=== PATIENT | female | born 1945 | race Caucasian/White ===

== ENCOUNTER → 2017-08-02 | Outpatient (CLI) | payer OTHER | LOC: BMCIMAGING 07:53 | PROVIDERS: ATTEND Family Medicine | DX: Z12.31 Encounter for screening mammogram for malignant neoplasm of breast (principal) | CPT/HCPCS: G0202 ==

== ENCOUNTER 2018-10-16 09:35 | Emergency (ER) | payer OTHER ==
[2018-10-16] MEDS ORDERED: ACETAMINOPHEN 500 MG TAB PO ONE (09:44)
[2018-10-16] MEDS ORDERED: DIAZEPAM 5 MG/ML 1 ML SYR IVP ONE (09:44)
[2018-10-16] MEDS ORDERED: LIDOCAINE 4%/MENTHOL 1% PATCH TD ONE (09:44)
[2018-10-16] MEDS ORDERED: DEXAMETHASONE 4 MG/ML VIAL IVP ONE (09:44)
--- NOTE | 2018-10-16 09:44 | EDPHY ---
H & P Source: Patient, EMS Exam Limitations: No limitations Time Seen by Provider: 10/16/18 09:40 HPI/ROS: HPI: This is a 73-year-old female who presents with Chief Complaint: Left hip pain Location: Left hip Quality: Pain Duration: Yesterday evening Signs and Symptoms: No bleeding, no radiation, no numbness, no weakness, no tingling, no incontinence, + decreased range of motion, no swelling, + pain, no fever Timing: Acute onset, worse with certain movements Severity: 05/26 Context: Patient arrives via EMS with complaints of sudden onset in the middle the night last night of left lateral hip pain that was nonradiating in nature. She reports that she fell asleep on the couch and woke up and when she tried to the flexor left hip to climb the stairs she felt immediate, constant, moderate to severe nonradiating pain in her left hip. Patient reports that the pain was so severe that she had to sit down call for . She reports that she did not fall or sustain any injury. Patient has a remote history of lower back pain but no diagnosis lumbar degenerative disc disease. She was seen by physical therapy and told that she had a "tight IT band." Denies any change in bowel or bladder habits. Patient normally takes Advil for pain and has had no relief. Ambulation is limited due to increased pain. Modifying Factors: EMS give patient IV morphine 5 mg with relief of pain from to 02/23 Comment: ROS: A comprehensive 10 system review of systems is otherwise negative aside from elements mentioned in the history of present illness. MEDICAL/SURGICAL/SOCIAL HISTORY: Medical history: Hypertension. Surgical history: Denies Social history: , retired, nonsmoker, daily alcohol user CONSTITUTIONAL: Polite and cooperative elderly white female, awake and alert, no obvious distress HEENT: Atraumatic and normocephalic. NECK: supple, no midline tenderness Cardiovascular: Normal S1/S2, regular rate, regular rhythm, without murmur rub or gallop. PULMONARY/CHEST: Symmetrical and nontender. no crepitus. Clear to auscultation bilaterally. Good air movement. No accessory muscle usage. ABDOMEN: Soft, nondistended, nontender, no ecchymosis. PELVIC: no pain with rocking; bilateral hips flexion 125 degrees, extension 30 degrees, with no pain internal rotation and no pain external rotation. BACK: No midline tenderness, no paraspinous spasm, deep tendon reflexes 2/2, moderate pain with left straight leg raise, No foot drop. Achilles reflexes are equal bilaterally. EXTREMITIES: 2/2 pedal pulses, strength 5/5, left HIP: Flexion to 80, extension to 75, hyper extension to 15, abduction to 15. Moderate Pain with internal rotation and external rotation. Moderate tenderness over greater trochanter. DIP/PIP/MCP flexion/extension intact with good light touch sensation. no deformities, no clubbing, no cyanosis or edema. NEUROLOGICAL: no focal neuro deficits. GCS 15. Light touch sensation intact. SKIN: Warm and dry, no erythema. no rash. Good capillary refill. (Cande Bronson ) Constitutional: Initial Vital Signs Heart Rate 104 H 10/16/18 09:40 Respiratory Rate 18 10/16/18 09:40 Blood Pressure 150/95 H 10/16/18 09:40 O2 Sat (%) 93 10/16/18 09:40 O2 Delivery Mode [Post Room Air Procedure 1st] O2 Delivery Mode [Procedural Non-Rebreather Mask 1st] O2 Delivery Mode [.Immediate Non-Rebreather Mask Pre-Procedure] O2 Delivery Mode Room Air O2 (L/minute) [Procedural 1st] 15 O2 (L/minute) [.Immediate Pre- 15 Procedure] O2 (L/minute) 2 Allergies/Adverse Reactions: No Known Allergies Allergy (Unverified 10/16/18 09:39) Home Medications: Medication Instructions Recorded HCTZ (*) 10/16/18 Medical Decision Making - Diagnostics Imaging Results: Imaging Impressions Hip X-Ray 10/16/18 09:44 Impression: Posterior left hip dislocation. Lumbar Spine X-Ray 10/16/18 09:44 Impression: Limited study with age indeterminate mild anterior wedge compression deformity of the first nonrib-bearing lumbar vertebral body. Correlation with point tenderness and comparison with prior cross-sectional imaging is recommended if available Hip X-Ray 10/16/18 11:02 Impression: Successful reduction of the left hip dislocation. Procedures: 10:55 Procedure: Conscious sedation. Indication: Hip dislocation reduction I was asked by SOLOMON Mc, to perform procedural sedation. The patient is an appropriate candidate to tolerate procedural sedation. The patient's vitals signs and mental status are appropriate. The risks, benefits and alternatives of the sedation were discussed with the patient. The patient is ASA classification 2. The patient's Mallampati airway score was 2 and the patient did meet the 3-3-2 airway measurements. A time out was completed. The patient was sedated with 60mg IV Propofol. The patient was monitored with continuous pulse oximetry, equipment monitor phototypesetting and end tidal CO2. There were no complications and no significant hypoxemia. I performed the sedation, reduction performed by SOLOMON Mc. The total time I spent at the bedside during the procedural sedation was 20 minutes. The patient was examined after the procedural sedation and has returned to their pre-sedation baseline with normal vital signs and a normal examination. (Roman Graham) Procedure: Dislocation reduction. The dislocation of the left hip was reduced using Allis technique without complications. Post reduction the patient's neurovascular exam is normal. Post reduction x-ray demonstrates reduction of the joint to the anatomic position. The procedure was performed by myself. (Cande Bronson) ED Course/Re-evaluation: Vital signs reviewed and show mild tachycardia. No signs of cauda equina syndrome/saddle anesthesia or need for emergent MRI Left hip x-ray and lumbar sacral x-rays ordered IV access and medications given Patient given IV Valium 5 mg, IV Decadron 8 mg, p.o. Tylenol 1000 mg, Lidoderm patch 1042: Left hip x-ray shows dislocation. Moved to Trauma [address] Graham perform conscious sedation and hip reduced with 1st attempt. Post reduction x-ray shows nornal alignment 1300: Patient able to transfer out of bed and stand using walker without any hip pain or decreased range of motion. Patient complaining of dizziness status post conscious sedation. Offer patient admission and she is adamant that she wants to be discharged home. Will continue to monitor. 1437: Patient ambulating in halls using walker without difficulty or pain. manager mortgage consult for walker at discharge. No signs of neurovascular compromise/tenting of skin/compartment syndrome/ extremities and joints examined above and below area of concern and are neurovascularly intact. This patient was seen under the supervision of my secondary supervising physician. I evaluated care for this patient independently. Discussed this patient with Dr. Graham who did not see the patient. (Cande Bronson) Differential Diagnosis: Back pain including but not limited to muscular pain, herniated disc, spine fracture, intra-abdominal causes and urinary tract infection. (Cande Bronson) - Data Points Medications Given: Discontinued Medications Acetaminophen (Tylenol) 1,000 mg PO EDNOW ONE Stop: 10/16/18 09:45 Last Admin: 10/16/18 09:49 Dose: 1,000 mg Dexamethasone (Decadron Injection) 8 mg IVP EDNOW ONE Stop: 10/16/18 09:45 Last Admin: 10/16/18 09:51 Dose: 8 mg Diazepam (Valium) 5 mg IVP EDNOW ONE Stop: 10/16/18 09:45 Last Admin: 10/16/18 09:50 Dose: 5 mg Miscellaneous Medication (Icy Hot Lidocaine/Menthol 4%/1% Patch) 1 patch TD EDNOW ONE Stop: 10/16/18 09:45 Last Admin: 10/16/18 09:51 Dose: 1 patch Propofol (Diprivan) 60 mg IVP EDNOW ONE Stop: 10/16/18 10:45 Last Admin: 10/16/18 10:58 Dose: 60 mg Departure - Departure Disposition: Home, Routine, Self-Care Clinical Impression: Dislocation of hip, left, closed Qualifiers: Encounter type: initial encounter Qualified Code(s): S73.005A - Unspecified dislocation of left hip, initial encounter Condition: Good Instructions: Hip Dislocation (ED) Additional Instructions: Avoid climbing stairs or kicking activities. Use walker to aid ambulation until seen by Orthopedics. Take Tylenol 650 mg every 4 hours and/or Ibuprofen 600 mg every 8 hours with food as needed for pain. Apply ice for 30 minutes at a time; 2-3 times per day for the next 1-2 days. Follow up with Orthopedics in 5-7 days at which time they will evaluate and recommend with you if conservative management versus further therapy is indicated. Follow-Up: Please follow-up as noted above. Follow-up sooner if your condition worsens or if you develop any new problems. Call as soon as possible for an appointment. Be clear when you call for an appointment that this is an Emergency Department follow-up. Contact the Emergency Department if you have trouble arranging follow-up care. Our referrals are not based on your insurance network. When time allows, contact your insurance carrier to verify the referral physician is in your plan. If not, get a referral for an in-network operations lead. Referrals: Harrison Juarez MD [Medical Doctor] - As per Instructions
[2018-10-16] MEDS ORDERED: PROPOFOL 200 MG/20 ML VIAL IVP ONE (10:44)
[2018-10-16] MEDS ORDERED: fentaNYL 100 MCG/2 ML INJ ONE (10:49)
[2018-10-16 15:06] VITALS: BP 130/73
[2018-10-16] MEDS ORDERED: PATCH REMOVAL 1 EA PATCH TD SCH (21:00)
--- NOTE | 2018-10-17 17:28 | ASMTCAGE ---
CAGE Additional Comments Reviewed chart. SBIRT negative. MD notes indicate pt drinks daily. CM unable to screen, pt discharged prior to being seen by CM. Date Signed: 10/17/2018 05:27 PM Electronically Signed By:Vanita Mcintyre RN
== END 2018-10-16 15:06 | disposition home or self-care (01) ==
LOC: EDUNIT#
PROC: 0SSBXZZ Reposition Left Hip Joint, External Approach (ICD-10-PCS; principal; 2018-10-16)
DX: S73.005A Unspecified dislocation of left hip, initial encounter (principal); Y92.009 Unspecified place in unspecified non-institutional (private) residence as the place of occurrence of the external cause; Y93.9 Activity, unspecified
CPT/HCPCS: 27250; 72100; 73501; 73502; 96374; 96375; 99152; 99285; J1100; J2704; J3360; J3010

== ENCOUNTER 2018-11-29 07:21 | Inpatient (IN) | payer OTHER | END 2018-12-04 15:45 | LOC: F3E 11:21 ==

== ENCOUNTER 2018-12-14 16:17 | Inpatient (IN) | payer OTHER ==
--- NOTE | 2018-12-14 18:01 | EDPHY ---
H & P Stated Complaint: ARI LE tingling Time Seen by Provider: 12/14/18 17:51 HPI/ROS: HPI: This is a 73-year-old female who presents with Chief Complaint: Bilateral LE tingling Location: Quality: Duration: Signs and Symptoms: No bleeding, no radiation, no numbness, no weakness, no tingling, no incontinence, no decreased range of motion, no swelling, no pain, no fever Timing: Severity: Context: Denies LOC/head injury/neck pain/dizziness/nausea/vomiting/amnesia. Modifying Factors: Comment: ROS: A comprehensive 10 system review of systems is otherwise negative aside from elements mentioned in the history of present illness. MEDICAL/SURGICAL/SOCIAL HISTORY: Medical history: HTN, left hip dislocation, hyponatremia Surgical history: Knee replacement Social history: CONSTITUTIONAL: awake and alert, no obvious distress HEENT: Atraumatic and normocephalic. NECK: supple, no midline tenderness, flexion 45 degrees, extension 45 degrees, right and left lateral flexion 45 degrees. No meningismus. Cardiovascular: Normal S1/S2, tachycardia, regular rhythm, without murmur rub or gallop. PULMONARY/CHEST: Symmetrical and nontender. no crepitus. Clear to auscultation bilaterally. Good air movement. No accessory muscle usage. ABDOMEN: Soft, nondistended, nontender, no ecchymosis. PELVIC: no pain with rocking; bilateral hips flexion 125 degrees, extension 30 degrees, with no pain internal rotation and no pain external rotation. BACK: No midline tenderness, no paraspinous spasm, deep tendon reflexes 2/2, no pain with straight leg raise, No foot drop. Achilles reflexes are equal bilaterally. Able to walk on heels and toes without difficulty. EXTREMITIES: 2/2 pulses, strength 5/5, DIP/PIP/MCP flexion/extension intact with good light touch sensation. no deformities, no clubbing, no cyanosis or edema. NEUROLOGICAL: no focal neuro deficits. GCS 15. Light touch sensation intact. SKIN: Warm and dry, no erythema. no rash. Good capillary refill. Source: Patient Exam Limitations: No limitations - Personal History Current Tetanus/Diphtheria Vaccine: Yes Current Tetanus Diphtheria and Acellular Pertussis (TDAP): Yes - Medical/Surgical History Hx Asthma: No Hx Chronic Respiratory Disease: No Hx Diabetes: No Hx Cardiac Disease: Yes Hx Renal Disease: No Hx Cirrhosis: No Hx Alcoholism: No Hx HIV/AIDS: No Hx Splenectomy or Spleen Trauma: No Other PMH: HTN, knee replacement, left hip dislocation, hyponatremia - Social History Smoking Status: Never smoked Constitutional: Initial Vital Signs Temperature (C) 36.9 C 12/14/18 16:18 Heart Rate 112 H 12/14/18 16:18 Respiratory Rate 16 12/14/18 16:18 Blood Pressure 151/131 H 12/14/18 16:18 O2 Sat (%) 96 12/14/18 16:18 O2 Delivery Mode Room Air Allergies/Adverse Reactions: No Known Allergies Allergy (Verified 12/14/18 16:18) Home Medications: Medication Instructions Recorded Multivitamins [Multivitamin (*)] 1 each PO DAILY 11/29/18 Acetaminophen [Tylenol 325mg (*)] 650 mg PO Q4HRS PRN tab 12/04/18 Cyclobenzaprine [Flexeril 10 MG 10 mg PO TID PRN tab 12/04/18 (*)] Hydrocodone/APAP 5/325 [[place] 1 - 2 tab PO Q4HRS PRN tab 12/04/18 5/325 (*)] Lisinopril [Zestril 10 mg (*)] 20 mg PO DAILY #30 tab 12/04/18 Polyethylene Glycol 3350 [Miralax 17 gm PO DAILY PRN pkt 12/04/18 17 gm (*)] Sennosides/Docusate Sodium 1 - 2 tab PO BID tab 12/04/18 [Senokot-S] Sodium Chloride [Salt Tablet] 1,000 mg PO TID tab 12/04/18 Departure - Departure Referrals: NONE *PRIMARY CARE P,. [Primary Care Provider] - As per Instructions
--- NOTE | 2018-12-14 18:07 | EDPHY ---
H & P Stated Complaint: ARI LE tingling Time Seen by Provider: 12/14/18 17:51 HPI/ROS: HPI: This is a 73-year-old female who presents with Chief Complaint: Bilateral leg and foot numbness Location: Bilateral leg and foot Quality: Numbness Duration: 2 hr prior to arrival Signs and Symptoms: No bleeding, no radiation, no numbness, no weakness, no tingling, no incontinence, no decreased range of motion, no swelling, no pain, no fever Timing: Acute Severity: [id number] Context: Patient reports that she was sitting down playing on her iPad when she started to developed bilateral leg and foot numbness. She reports that it feels like "if fell asleep." She denies any radiation, weakness, decreased range of motion. Patient reports that she fell in September and was seen in this hospital and had her left hip reduced after dislocation and also had a lumbar spine x-ray that showed age-indeterminate mild anterior wedge compression deformity of the 1st non bearing lumbar vertebral body. She reports she went home with a walker without any difficulties. She started to feel generalized weakness in November and was admitted to this hospital on with hyponatremia/SIADH as well as low back pain that improved with oxycodone and Flexeril. She was discharged to [facility] facility which she "did not care for." Two weeks ago patient reports that she fell while getting into her bed that is quite elevated. She reports that she fell directly on her lumbar spine and coccyx area. She was able to get up off of the floor on her own at that time. She is currently ambulatory without any deficits. Denies any change in bowel or bladder habits. Modifying Factors: None Comment: ROS: A comprehensive 10 system review of systems is otherwise negative aside from elements mentioned in the history of present illness. MEDICAL/SURGICAL/SOCIAL HISTORY: Medical history: HTN, SIADH, left hip dislocation, hyponatremia Surgical history: Left knee replacement Social history: Retired. Never smoked. . CONSTITUTIONAL: Talkative, nontoxic-appearing elderly white female, at bedside, awake and alert, no obvious distress HEENT: Atraumatic and normocephalic. NECK: supple, no midline tenderness, flexion 45 degrees, extension 45 degrees, right and left lateral flexion 45 degrees. No meningismus. Cardiovascular: Normal S1/S2, regular rate, regular rhythm, without murmur rub or gallop. PULMONARY/CHEST: Symmetrical and nontender. no crepitus. Clear to auscultation bilaterally. Good air movement. No accessory muscle usage. ABDOMEN: Soft, nondistended, nontender, no ecchymosis. PELVIC: no pain with rocking; bilateral hips flexion 125 degrees, extension 30 degrees, with no pain internal rotation and no pain external rotation. BACK: Multilevel lumbar midline tenderness, no paraspinous spasm, deep tendon reflexes 2/2, no pain with straight leg raise, No foot drop. Achilles reflexes are equal bilaterally. EXTREMITIES: 2/2 pulses, strength 5/5, DIP/PIP/MCP flexion/extension intact with good light touch sensation. no deformities, no clubbing, no cyanosis or edema. NEUROLOGICAL: no focal neuro deficits. GCS 15. Light touch sensation intact. SKIN: Warm and dry, no erythema. no rash. Good capillary refill. Source: Patient, Family, Old records Exam Limitations: No limitations - Personal History Current Tetanus/Diphtheria Vaccine: Yes Current Tetanus Diphtheria and Acellular Pertussis (TDAP): Yes - Medical/Surgical History Hx Asthma: No Hx Chronic Respiratory Disease: No Hx Diabetes: No Hx Cardiac Disease: Yes Hx Renal Disease: No Hx Cirrhosis: No Hx Alcoholism: No Hx HIV/AIDS: No Hx Splenectomy or Spleen Trauma: No Other PMH: HTN, knee replacement, left hip dislocation, hyponatremia - Social History Smoking Status: Never smoked Constitutional: Initial Vital Signs Temperature (C) 36.9 C 12/14/18 16:18 Heart Rate 112 H 12/14/18 16:18 Respiratory Rate 16 12/14/18 16:18 Blood Pressure 151/131 H 12/14/18 16:18 O2 Sat (%) 96 12/14/18 16:18 O2 Delivery Mode Room Air Allergies/Adverse Reactions: No Known Allergies Allergy (Verified 12/14/18 16:18) Home Medications: Medication Instructions Recorded Multivitamins [Multivitamin (*)] 1 each PO DAILY 11/29/18 Acetaminophen [Tylenol 325mg (*)] 650 mg PO Q4HRS PRN tab 12/04/18 Cyclobenzaprine [Flexeril 10 MG 10 mg PO TID PRN tab 12/04/18 (*)] Hydrocodone/APAP 5/325 [[place] 1 - 2 tab PO Q4HRS PRN tab 12/04/18 5/325 (*)] Lisinopril [Zestril 10 mg (*)] 20 mg PO DAILY #30 tab 12/04/18 Polyethylene Glycol 3350 [Miralax 17 gm PO DAILY PRN pkt 12/04/18 17 gm (*)] Sennosides/Docusate Sodium 1 - 2 tab PO BID tab 12/04/18 [Senokot-S] Sodium Chloride [Salt Tablet] 1,000 mg PO TID tab 12/04/18 Medical Decision Making - Diagnostics Imaging Results: Imaging Impressions Lumbar Spine MRI 12/14/18 18:01 Impression: 1. There are old mild T12 and L6 compression fractures. 2. There is a [id number] L1 and moderate L2 acute/subacute compression deformities. There is no dorsal retropulsion or epidural hematoma. 3. There is trace degenerative anterolisthesis at L5-L6 with broad-based circumferential disk bulging and moderate bilateral facet hypertrophy, mild central canal stenosis, mild right neural foraminal stenosis, and moderate left neural foraminal stenosis. Please see the above discussion for other ancillary findings at each level. Findings were discussed with Cadne Bronson PA-C at 21:03, on 12/14/2018. ED Course/Re-evaluation: Vital signs reviewed and show mild tachycardia, mild elevated blood pressure IV access, laboratory studies, urinalysis, MRI lumbar spine ordered 1821: Notified by RN that patient is requesting Ativan prior to MRI. IV Ativan 1 mg ordered. 1899: Notified by RN that patient is requesting pain medications. P.o. Percocet x1 given. 1921: Labs reviewed. No signs of leukocytosis/anemia/platelet dysfunction/ERI/ electrolyte imbalance/pancreatitis. Macrocytosis without anemia noted. Mildly elevated LFTs that are improved from several days ago. Sodium 132. 2114: Called by Radiology, Dr. Rogers, who reports that MRI lumbar spine shows progression of L1 fracture seen on x-ray September 2018 new compression fracture at L2 with bone marrow edema, multilevel degenerative disc disease with L5-S1 mild disc bulge and mild central canal stenosis. 2214: ED decision to consult hospitalist for admission. Spoke with hospitalist , Dr. Alvarado, kindly agrees to admit patient and provide further care. Spoke with neurosurgery, Dr. Ernst, kindly agrees to consult on patient. Recommends placement in back brace. No signs of neurovascular compromise/tenting of skin/compartment syndrome/ extremities and joints examined above and below area of concern and are neurovascularly intact/cauda equina syndrome. This patient was seen under the supervision of my secondary supervising physician. I evaluated care for this patient independently. Discussed this patient with Dr. Limon who did not see the patient. Differential Diagnosis: Back pain including but not limited to muscular pain, herniated disc, spine fracture, intra-abdominal causes and urinary tract infection. - Data Points Laboratory Results: Laboratory Results 12/14/18 18:08 12/14/18 18:08 12/14/18 12/14/18 18:08 18:08 WBC 5.32 10^3/uL 10^3/uL (3.80-9.50) RBC 4.07 10^6/uL L 10^6/uL (4.18-5.33) Hgb 13.8 g/dL g/dL (12.6-16.3) Hct 41.0 % % (38.0-47.0) MCV 100.7 fL H fL (81.5-99.8) MCH 33.9 pg pg (27.9-34.1) MCHC 33.7 g/dL g/dL (32.4-36.7) RDW 14.4 % % (11.5-15.2) Plt Count 527 10^3/uL H 10^3/uL (150-400) MPV 9.0 fL fL (8.7-11.7) Neut % (Auto) 72.3 % % (39.3-74.2) Lymph % (Auto) 16.5 % % (15.0-45.0) Barber % (Auto) 9.0 % % (4.5-13.0) Eos % (Auto) 0.8 % % (0.6-7.6) Baso % (Auto) 0.8 % % (0.3-1.7) Nucleat RBC Rel Count 0.0 % % (0.0-0.2) Absolute Neuts (auto) 3.85 10^3/uL 10^3/uL (1.70-6.50) Absolute Lymphs (auto) 0.88 10^3/uL L 10^3/uL (1.00-3.00) Absolute Monos (auto) 0.48 10^3/uL 10^3/uL (0.30-0.80) Absolute Eos (auto) 0.04 10^3/uL 10^3/uL (0.03-0.40) Absolute Basos (auto) 0.04 10^3/uL 10^3/uL (0.02-0.10) Absolute Nucleated RBC 0.00 10^3/uL 10^3/uL (0-0.01) Immature Gran % 0.6 % % (0.0-1.1) Immature Gran # 0.03 10^3/uL 10^3/uL (0.00-0.10) Sodium 132 mEq/L L mEq/L (135-145) Potassium 4.4 mEq/L mEq/L (3.5-5.2) Chloride 99 mEq/L mEq/L (97-110) Carbon Dioxide 22 mEq/l mEq/l (22-31) Anion Gap 11 mEq/L mEq/L (6-14) BUN 8 mg/dL mg/dL (7-23) Creatinine 0.6 mg/dL mg/dL (0.6-1.0) Estimated GFR > 60 Glucose 113 mg/dL H mg/dL (70-100) Calcium 10.1 mg/dL mg/dL (8.5-10.4) Total Bilirubin 1.0 mg/dL mg/dL (0.1-1.4) Conjugated Bilirubin 0.5 mg/dL mg/dL (0.0-0.5) Unconjugated Bilirubin 0.5 mg/dL mg/dL (0.0-1.1) AST 52 IU/L H IU/L (14-46) ALT 61 IU/L H IU/L (9-52) Alkaline Phosphatase 156 IU/L H IU/L (38-126) Total Protein 6.5 g/dL g/dL (6.3-8.2) Albumin 3.9 g/dL g/dL (3.5-5.0) Lipase 16 IU/L L IU/L (23-300) Medications Given: Discontinued Medications Lorazepam (Ativan Injection) 1 mg IVP EDNOW ONE Stop: 12/14/18 18:23 Last Admin: 12/14/18 18:25 Dose: 1 mg Oxycodone/Acetaminophen (Percocet 5/325) 1 tab PO EDNOW ONE Stop: 12/14/18 19:09 Last Admin: 12/14/18 19:13 Dose: 1 tab Departure - Dep[facility] Clinical Impression: Lumbar disc herniation with radiculopathy, Risk for falls, Intractable low back pain Compression fracture of L1 lumbar vertebra Qualifiers: Encounter type: initial encounter Fracture type: closed Qualified Code(s): S32.010A - Wedge compression fracture of first lumbar vertebra, initial encounter for closed fracture Compression fracture of L2 lumbar vertebra Qualifiers: Encounter type: initial encounter Fracture type: closed Qualified Code(s): S32.020A - Wedge compression fracture of second lumbar vertebra, initial encounter for closed fracture Condition: Fair
[2018-12-14 18:20] LABS: PLATELET COUNT 527 10^3/uL (150-400)
[2018-12-14] MEDS ORDERED: LORazepam 2 MG/ML INJ IVP ONE (18:22)
[2018-12-14] MEDS ORDERED: OXYCODONE/APAP 5/325 TAB PO ONE (19:08)
[2018-12-14] MEDS ORDERED: NS 1,000 ML IV ONE (21:57)
[2018-12-14] MEDS ORDERED: IBUPROFEN 200 MG TAB PO PRN (22:56)
[2018-12-14] MEDS ORDERED: oxyCODONE IR 5 MG TAB PO PRN (22:56)
[2018-12-14] MEDS ORDERED: ONDANSETRON 4 MG/2 ML VIAL IVP PRN (22:56)
[2018-12-14] MEDS ORDERED: ONDANSETRON DISINTEGRATING 4 MG TAB PO PRN (22:56)
[2018-12-14] MEDS ORDERED: SENNOSIDES/DOCUSATE SODIUM TAB PO PRN (22:59)
[2018-12-14] MEDS ORDERED: POLYETHYLENE GLYCOL 3350 17 GM PKT PO PRN (22:59)
--- NOTE | 2018-12-15 00:07 | PDGENHP ---
History and Physical - Chief Complaint Foot numbness - History of Present Illness 73 yo F w/ hx of HTN, SIADH, and chronic back pain presents with bilateral foot numbness. The patient was recently admitted and discharged to a SNF after treatment of weakness, hyponatremia, and back pain. She was treated conservatively and discharged to a SNF. She has been home for 1 week and tells me she has been doing well. Then, today while sitting in a chair she noted bilateral foot numbness. This lasted about 5 minutes. She felt a bit dizzy as well so she came to the ED for evaluation. The bilateral foot numbness recurred in the ED for a few minutes but has now resolved. Her last fall was about 2 weeks ago while trying to get into bed. She did fall onto her coccyx/lower back. She denies an increase in her back pain from her baseline. In fact, currently she is asymptomatic aside from her chronic back pain. In the ED an MRI demonstrated nnshhdfp-kw-atowli L1 and moderate L2 acute/subacute compression deformities as well as L5/6 disk bulging meriting neurosurgical evaluation. Patient is being admitted for this reason. Case discussed with Dr. Alvarado; records reviewed and summarized above. History Information - Allergies/Home Medication List Allergies/Adverse Reactions: No Known Allergies Allergy (Verified 12/14/18 16:18) Home Medications: Multivitamins [Multivitamin (*)] 1 each PO DAILY 11/29/18 [Last Taken Unknown] Cyclobenzaprine [Flexeril 10 MG (*)] 10 mg PO TID PRN 12/14/18 [Last Taken 12/14 12:00] Hydrochlorothiazide [HCTZ (*)] 25 mg PO DAILY 12/14/18 [Last Taken 12/13/18] Hydrocodone/APAP 5/325 [[place] 5/325 (*)] 1 tab PO Q4HRS PRN 12/14/18 [Last Taken 12/14/18 11:30] Lisinopril [Zestril 10 mg (*)] 10 mg PO DAILY 12/14/18 [Last Taken Unknown] Sennosides/Docusate Sodium [Senokot-S] 1 - 2 tab PO BID PRN 12/14/18 [Last Taken Unknown] I have personally reviewed and updated: family history, medical history - Past Medical History hypertension Additional medical history: SIADH - Surgical History Additional surgical history: knee tka L - Family History Additional family history: Parents - Social History Smoking Status: Never smoked Review of Systems Review of Systems: ROS: 10pt was reviewed & negative except for what was stated in HPI & below Physical Exam Physical Exam: Temp Pulse Resp BP Pulse Ox 36.8 C 104 H 16 171/107 H 95 12/14/18 23:28 12/14/18 23:28 12/14/18 23:28 12/14/18 23:28 12/14/18 23:28 Constitutional: no apparent distress, appears nourished Eyes: PERRL, EOMI Ears, Nose, Mouth, Throat: moist mucous membranes, no oral mucosal ulcers Cardiovascular: regular rate and rhythym, systolic murmur Respiratory: no respiratory distress, clear to auscultation Gastrointestinal: normoactive bowel sounds, soft, non-tender abdomen Skin: warm, other (Purpuric, scaling rash lower extremities) Musculoskeletal: full muscle strength, no joint effusions Neurologic: AAOx3, CN II-XII Intact, other (LE reflexes WNL) Psychiatric: interacting appropriately, not anxious Lab Data & Imaging Review 12/14/18 18:08 12/14/18 18:08 WBC 5.32 10^3/uL (3.80-9.50) 12/14/18 18:08 RBC 4.07 10^6/uL (4.18-5.33) L 12/14/18 18:08 Hgb 13.8 g/dL (12.6-16.3) 12/14/18 18:08 Hct 41.0 % (38.0-47.0) 12/14/18 18:08 MCV 100.7 fL (81.5-99.8) H 12/14/18 18:08 MCH 33.9 pg (27.9-34.1) 12/14/18 18:08 MCHC 33.7 g/dL (32.4-36.7) 12/14/18 18:08 RDW 14.4 % (11.5-15.2) 12/14/18 18:08 Plt Count 527 10^3/uL (150-400) H 12/14/18 18:08 MPV 9.0 fL (8.7-11.7) 12/14/18 18:08 Neut % (Auto) 72.3 % (39.3-74.2) 12/14/18 18:08 Lymph % (Auto) 16.5 % (15.0-45.0) 12/14/18 18:08 [place] % (Auto) 9.0 % (4.5-13.0) 12/14/18 18:08 Eos % (Auto) 0.8 % (0.6-7.6) 12/14/18 18:08 Baso % (Auto) 0.8 % (0.3-1.7) 12/14/18 18:08 Nucleat RBC Rel Count 0.0 % (0.0-0.2) 12/14/18 18:08 Absolute Neuts (auto) 3.85 10^3/uL (1.70-6.50) 12/14/18 18:08 Absolute Lymphs (auto) 0.88 10^3/uL (1.00-3.00) L 12/14/18 18:08 Absolute Monos (auto) 0.48 10^3/uL (0.30-0.80) 12/14/18 18:08 Absolute Eos (auto) 0.04 10^3/uL (0.03-0.40) 12/14/18 18:08 Absolute Basos (auto) 0.04 10^3/uL (0.02-0.10) 12/14/18 18:08 Absolute Nucleated RBC 0.00 10^3/uL (0-0.01) 12/14/18 18:08 Immature Gran % 0.6 % (0.0-1.1) 12/14/18 18:08 Immature Gran # 0.03 10^3/uL (0.00-0.10) 12/14/18 18:08 Sodium 132 mEq/L (135-145) L 12/14/18 18:08 Potassium 4.4 mEq/L (3.5-5.2) 12/14/18 18:08 Chloride 99 mEq/L (97-110) 12/14/18 18:08 Carbon Dioxide 22 mEq/l (22-31) 12/14/18 18:08 Anion Gap 11 mEq/L (6-14) 12/14/18 18:08 BUN 8 mg/dL (7-23) 12/14/18 18:08 Creatinine 0.6 mg/dL (0.6-1.0) 12/14/18 18:08 Estimated GFR > 60 12/14/18 18:08 Glucose 113 mg/dL (70-100) H 12/14/18 18:08 Calcium 10.1 mg/dL (8.5-10.4) 12/14/18 18:08 Total Bilirubin 1.0 mg/dL (0.1-1.4) 12/14/18 18:08 Conjugated Bilirubin 0.5 mg/dL (0.0-0.5) 12/14/18 18:08 Unconjugated Bilirubin 0.5 mg/dL (0.0-1.1) 12/14/18 18:08 AST 52 IU/L (14-46) H 12/14/18 18:08 ALT 61 IU/L (9-52) H 12/14/18 18:08 Alkaline Phosphatase 156 IU/L (38-126) H 12/14/18 18:08 Total Protein 6.5 g/dL (6.3-8.2) 12/14/18 18:08 Albumin 3.9 g/dL (3.5-5.0) 12/14/18 18:08 Lipase 16 IU/L (23-300) L 12/14/18 18:08 Urine Color YELLOW 12/14/18 21:40 Urine Appearance CLEAR 12/14/18 21:40 Urine pH 8.0 (5.0-7.5) H 12/14/18 21:40 Ur Specific [place] 1.010 (1.002-1.030) 12/14/18 21:40 Urine Protein NEGATIVE (NEGATIVE) 12/14/18 21:40 Urine Ketones TRACE (NEGATIVE) H 12/14/18 21:40 Urine Blood NEGATIVE (NEGATIVE) 12/14/18 21:40 Urine Nitrate NEGATIVE (NEGATIVE) 12/14/18 21:40 Urine Bilirubin NEGATIVE (NEGATIVE) 12/14/18 21:40 Urine Urobilinogen NEGATIVE EU (0.2-1.0) 12/14/18 21:40 Ur Leukocyte Esterase NEGATIVE (NEGATIVE) 12/14/18 21:40 Urine Glucose NEGATIVE (NEGATIVE) 12/14/18 21:40 Imaging Review: Imaging Impressions Lumbar Spine MRI 12/14/18 18:01 Impression: 1. There are old mild T12 and L6 compression fractures. 2. There is a aycmswig-ri-oebeti L1 and moderate L2 acute/subacute compression deformities. There is no dorsal retropulsion or epidural hematoma. 3. There is trace degenerative anterolisthesis at L5-L6 with broad-based circumferential disk bulging and moderate bilateral facet hypertrophy, mild central canal stenosis, mild right neural foraminal stenosis, and moderate left neural foraminal stenosis. Please see the above discussion for other ancillary findings at each level. Findings were discussed with Cande Bronson PA-C at 21:03, on 12/14/2018. Assessment & Plan Assessment: 73 yo F w/ hx of HTN, SIADH, and chronic back pain presents with new foot numbness and MRI findings of compression fractures and disk bulge. Plan: 1. Bilateral foot numbness - New symptom onset on day of admission; this may be a signal of unstable lumbar DJD. MRI demonstrates old mild T12 and L6 compression fractures, snvsygph-mv-yewyex L1 and moderate L2 acute/subacute compression deformities, and trace degenerative anterolisthesis at L5-L6 with broad-based circumferential disk bulging and moderate bilateral facet hypertrophy, mild central canal stenosis, mild right neural foraminal stenosis, and moderate left neural foraminal stenosis. - Neurosurgery consulted, will evaluate patient in the morning - Considered prednisone but noting patient is currently asymptomatic, will hold off on this - PT/OT evaluations 2. Chronic lower back pain - Patient denies increase in her chronic back pain. MRI demonstrates multiple compression fractures. Her pain is well controlled with [place] PRN and Flexeril PRN. - Continue home pain medications 3. HTN - Patient on lisinopril and HCTZ as outpatient. Unclear why she remains on HCTZ despite recurrent hyponatremia. - Will hold HCTZ - Continue lisinopril, increase if needed 4. Hyponatremia, SIADH - Chronic issue for this patient. Her serum sodium is 132 today. She is taking HCTZ again after this being discontinued last admission. She is also on salt tabs, which seems contradictory. - Hold HCTZ and salt tabs - 1.5 L fluid restriction - Monitor BMP 5. Abnormal LFTs - Mild elevations in AST/ALT and Alk Phos noted. AST/ALT seem to be elevated for the last few years, although Alk Phos only elevated since November of this year. Review of Natalie demonstrates this is being worked up by PCP currently. - Continue outpatient evaluatin 6. Rash - S/p biopsy by dermatology this week. This has been present since January of 2018. Diet - Regular Code - Full Ppx - SCDs Dispo - Admit under inpatient status
[2018-12-15] MEDS: CYCLOBENZAPRINE 10 MG TAB PO PRN ×2 (00:49→08:10)
[2018-12-15] MEDS: HYDROCODONE/APAP 5/325 TAB PO PRN ×3 (00:49→12:14)
[2018-12-15] MEDS ORDERED: ACETAMINOPHEN 500 MG TAB PO SCH (06:00)
[2018-12-15 06:19] LABS: PLATELET COUNT 432 10^3/uL (150-400)
[2018-12-15] MEDS ORDERED: LISINOPRIL 10 MG TAB PO SCH (09:00)
[2018-12-15] MEDS ORDERED: MULTIVITAMINS 1 EACH TAB PO SCH (09:00)
[2018-12-15] MEDS ORDERED: ACETAMINOPHEN 325 MG TAB PO PRN (09:48)
[2018-12-15] MEDS ORDERED: CYCLOBENZAPRINE 10 MG TAB PO PRN (09:48)
[2018-12-15] MEDS ORDERED: HYDROCODONE/APAP 5/325 TAB PO PRN (09:48)
--- NOTE | 2018-12-15 10:27 | ASMTCMCOM ---
CM Note CM Note Notes: Pt is a 73 y/o female admitted for foot numbness. Pt was here at [facility] from 11/30/18 to 12/04/18 and discharge to [facility] SNF. CM discussed case w/ Lilliam Gannon NP. Pt will most likely d/c without any needs when medically stable. No therapies ordered at this time. CM available for changes. Plan: Independent Date Signed: 12/15/2018 10:26 AM Electronically Signed By:JAUREZ Gaviria
--- NOTE | 2018-12-15 11:57 | PDMN ---
Medical Necessity Medical necessity: Pt meets IP criteria per MD & MCG MG-MD Musculoskeletal Disease; est los >2 mn for eval/tx of L1/L2 compression fxs & L5/L6 disc bulge w /bilateral foot numbness; requiring further monitoring, Neuro consult & therapies; hx chronic back pain; per H&P & order 12/14/18
[2018-12-15 12:09] VITALS: BP 149/93
--- NOTE | 2018-12-15 14:35 | GCON ---
[f rep st] CONSULTATION DATE OF CONSULTATION: 12/15/2018 REASON FOR CONSULTATION: Low back pain with compression fracture. HOSPITAL COURSE/HISTORY/MAJOR MEDICAL FINDINGS: The patient is a 73-year-old female who presented to the emergency room with back pain and bilateral foot numbness. She was recently admitted and discha rged to SNF after treatment for weakness, hyponatremia and back pain. Upon coming to the emergency r oom, they conducted an MRI which demonstrated some acute fractures and Neurosurgery was consulted. S he denies any loss of bowel or bladder control. Her greatest pain is actually in her mid back that r adiates over to her right hip. She denies any other leg weakness or any other leg pain. REVIEW OF SYSTEMS: Review of systems is negative other than what is stated in HPI. Please see for p ertinent negatives, pertinent positives. PAST MEDICAL HISTORY: Significant for hypertension. History of SIADH. PAST SURGICAL HISTORY: Significant for a right total knee replacement as well as a partial hysterect fabrice. FAMILY HISTORY: She does state that there is a history of a cardiac event or history of diabetes in her family as well as a history of kidney cancer. SOCIAL HISTORY: Patient has never smoked tobacco products. She drinks approximately 2 alcoholic humphrey erages per day. Her partner is in the room with her and she lives locally here in [place]. ALLERGIES: No known drug allergies. HOME MEDICATIONS: Include multivitamin, Flexeril, hydrochlorothiazide, [place] 5/325, 1 to 2 tablets q .4-6 hours p.r.n. pain, lisinopril 10 mg 1 p.o. daily, and Senokot. PHYSICAL EXAM: VITALS: BP is 165/97, heart rate 100, she is 91% on room air, temp is 36.6. GENERAL : The patient is in no acute distress. She is alert and oriented x3. She answers questions appropr iately. Affect appropriate to given situation. NEUROLOGIC: Cranial nerves 2-12 grossly intact. EO OR and PERRLA. The patient has 5/5 and equal in her bilateral upper and bilateral lower extremities, including her deltoids, triceps, biceps, wrist flexors, extensors, interossei, and intrinsic diamond setter, i liopsoas, hamstrings, quadriceps, plantar flexion, dorsiflexion, EHL. Her sensation is intact in nova ateral upper and bilateral lower extremities. Palpation of the lumbar spine does not elicit any dire ct pain with palpation of her lumbar spine. She has negative clonus bilaterally. DIAGNOSTIC REVIEW: Patient underwent a lumbar spine MRI which demonstrated moderate to severe L1 and L2 compression fractures that are acute, subacute in nature. There is no dorsal retropulsion or epi dural hematoma noted. There are old compression fractures of T12 and L6 noted. There is minimal deg enerative listhesis at L5 and 6 with a broad-based circumferential disk herniation with moderate bila teral facet arthropathy with mild canal stenosis. Mild right and moderate left neuroforaminal narrow ing. ASSESSMENT AND PLAN: The patient again is a 73-year-old female who presented with low back pain radi ating into her right hip pain. Her MRI does show acute compression fractures of L1 and L2. Given th is, we have recommended a Chandan brace for her to try, did discuss other options with the patient inc luding kyphoplasty. Would prefer to trial bracing first. She has old compressions at T12 and L6. G iven her disk bulge and symptoms, have discussed that this may be an etiology to some of her radiatin g pain. However, we will try bracing 1st and if that is not helpful, we can order an NHAN at L5-L6. The patient was seen both in conjunction by Dr. Darline Enrst and me. After the lumbar brace arrives, would recommend upright x-rays to evaluate stability of the fractures. Would optimize pain manageme nt, and PT and OT with the brace. /[id number]/MODL
[2018-12-15] MEDS ORDERED: SODIUM CHLORIDE 1,000 MG TAB PO SCH (16:00)
--- NOTE | 2018-12-15 16:36 | GDS ---
[f rep st] DISCHARGE SUMMARY HOSPITAL COURSE: The patient is a 73-year-old female, who presented to the emergency room with compl aints of back pain. She was evaluated and diagnosed with acute compression fracture of L1-L2. She d id receive a consultation from Neurosurgery during this hospitalization. Recommended Mer[place] brace villafuerte s been ordered for her and put in place. She was given the option to follow up with a kyphoplasty, b ut would prefer trialing the brace first. She does also have noted old compression fractures at T12, as well as L6. She is tolerating the brace at the time of disposition. She will continue physical therapy and occupational therapy in the outpatient setting, and also follow up with Dr. Ernst in [facility] outpatient setting. She has been instructed to return to the emergency room if her symptoms do not improve, her pain becomes worse, or she has increased numbness, tingling, or weakness. She is under standing this. PHYSICAL EXAM: GENERAL: The patient is alert. VITAL SIGNS: Afebrile at 36.6, pulse 93, respirator y rate 14, blood pressure 149/93, and she is saturating 91% on room air. I have seen and evaluated t he patient on the day of discharge. STUDIES AND PROCEDURES DONE: Lumbar spine MRI. CONSULTATIONS: Neurosurgery. DISCHARGE MEDICATIONS: Please refer to EMR form. Prescriptions include [place], as well as Flexeril. FOLLOWUP: Dr. Darline Ernst, as well as Dr. Harris, her primary care physician. /[id number]/MODL
[2018-12-16] MEDS ORDERED: HYDROCHLOROTHIAZIDE 25 MG TAB PO SCH (09:00)
== END 2018-12-15 14:40 | disposition home or self-care (01) | DRG 552 ==
LOC: F3N 23:14
PROVIDERS: ADMIT Internal Medicine; ATTEND Internal Medicine
DX: S32.010A Wedge compression fracture of first lumbar vertebra, initial encounter for closed fracture (principal); S32.020A Wedge compression fracture of second lumbar vertebra, initial encounter for closed fracture; W06.XXXA Fall from bed, initial encounter; Y92.013 Bedroom of single-family (private) house as the place of occurrence of the external cause; Z96.652 Presence of left artificial knee joint; I10 Essential (primary) hypertension; R21 Rash and other nonspecific skin eruption
CPT/HCPCS: 86334-90; 96374; J2060

== ENCOUNTER → 2018-12-27 | Outpatient (CLI) | payer OTHER | LOC: BMCIMAGING 08:08 | PROVIDERS: ATTEND Family Medicine | DX: K76.9 Liver disease, unspecified (principal); K86.89 Other specified diseases of pancreas; K87 Disorders of gallbladder, biliary tract and pancreas in diseases classified elsewhere ==

== ENCOUNTER 2019-03-15 16:37 | Inpatient (IN) | payer OTHER ==
[2019-03-15] MEDS ORDERED: NS 1,000 ML IV ONE (17:14)
--- NOTE | 2019-03-15 17:14 | EDPHY ---
H & P Stated Complaint: FTT, weakness Time Seen by Provider: 03/15/19 17:12 HPI/ROS: CHIEF COMPLAINT: Generalized weakness, near syncope HISTORY OF PRESENT ILLNESS: 74-year-old female presents after a near syncopal episode. Generalized weakness for a few months, intermittent. Worse over the last few days. Associated with decreased oral intake and dark stools x 2 days. This afternoon she was ambulating and collapsed onto the floor. She did not hurt herself and she did not lose consciousness. No abdominal pain, vomiting or diarrhea. REVIEW OF SYSTEMS: complete 10 point ROS reviewed and is negative except for the noted elements in the HPI - Medical/Surgical History Hx Asthma: No Hx Chronic Respiratory Disease: No Hx Diabetes: No Hx Cardiac Disease: Yes Hx Renal Disease: No Hx Cirrhosis: No Hx Alcoholism: No Hx HIV/AIDS: No Hx Splenectomy or Spleen Trauma: No Other PMH: HTN, knee replacement, left hip dislocation, hyponatremia - Social History Smoking Status: Never smoked - Physical Exam Exam: General Appearance: Alert, pleasant Eyes: Pupils equal and round, no conjunctival pallor ENT, Mouth: Mucous membranes moist Neck: Normal inspection Respiratory: Lungs are clear to auscultation Cardiovascular: Regular rate and rhythm Gastrointestinal: Abdomen is soft and nontender Rectal: Greenish black stool present Neurological: A&O, nonfocal exam Skin: Warm and dry Extremities: Normal inspection Psychiatric: Tearful at times Constitutional: Initial Vital Signs Temperature (C) 36.8 C 03/15/19 16:58 Heart Rate 80 03/15/19 16:58 Respiratory Rate 16 03/15/19 16:58 Blood Pressure 76/48 L 03/15/19 16:58 O2 Sat (%) 91 L 03/15/19 16:58 O2 Delivery Mode Room Air O2 (L/minute) 4 Allergies/Adverse Reactions: No Known Allergies Allergy (Verified 03/15/19 16:58) Home Medications: Medication Instructions Recorded Lisinopril [Zestril 10 mg (*)] 10 mg PO DAILY 12/14/18 Ferrous Sulfate [Slow Fe] 160 mg PO DAILY #30 tab 03/18/19 Lidocaine 4%/Menthol 1% [Icy Hot 1 patch TD DAILY patch 03/18/19 Lidocaine/Menthol 4%/1% Patch (*)] Pantoprazole Sodium [Protonix 40mg 40 mg PO BID #60 tab 03/18/19 (*)] Patch Removal 1 ea TD DAILY21 patch 03/18/19 Sodium Chloride [Salt Tablet] 1,000 mg PO DAILY #30 tab 03/18/19 oxyCODONE IR [Oxycodone Ir (*)] 5 mg PO Q3HRS PRN #20 tab 03/18/19 Medical Decision Making - Diagnostics EKG Interpretation: EKG interpreted by me reveals normal sinus rhythm, rate 90, low voltage, diffuse nonspecific T-wave changes. Interpretation: Abnormal EKG Imaging Results: Chest X-Ray 03/15/19 17:11 Impression: Hypoinflation without acute cardiopulmonary process. Nodular densities in both lungs likely represent granulomas. Imaging: I viewed and interpreted images myself ED Course/Re-evaluation: This patient presents with generalized weakness and hypotension. IV normal saline 1 L given on arrival. SBP 112 after IVF. Hct 29, down from 42 in 2018. Stool positive for occult blood. c/w upper GI bleed. Protonix 40 mg IV given. The hospitalist service was consulted for admission. Consulted Dr. Kessler , Protonix IV q6hr, plan for EGD in am. Grad onset of LBP during obs, lumbar spine Xrays reveal compression fx's of T12, L1, L2 and L2. Similar to MRI dated 11/2017. Doubt new fx. Differential Diagnosis: includes though not limited to hypoglycemia, UTI, pneumonia, CVA, dehydration, hyponatremia - Data Points Laboratory Results: Laboratory Results 03/16/19 05:13 03/16/19 05:13 Medications Given: Discontinued Medications Acetaminophen (Tylenol) 1,000 mg PO EDNOW ONE Stop: 03/15/19 18:12 Last Admin: 03/15/19 18:20 Dose: 1,000 mg Acetaminophen (Tylenol) 650 mg PO Q4HRS PRN PRN Reason: Pain, Mild/Fever, Can Take PO Stop: 09/11/19 19:41 Last Admin: 03/16/19 10:46 Dose: 650 mg Cyclobenzaprine HCl (Flexeril) 10 mg PO HS PRN PRN Reason: Spasms Stop: 09/12/19 20:59 Last Admin: 03/15/19 22:35 Dose: 10 mg Hydromorphone HCl (Dilaudid) 0.2 - 0.4 mg IVP Q4HRS PRN PRN Reason: Pain, Severe Unable to Take PO Stop: 03/25/19 19:41 Last Admin: 03/16/19 05:27 Dose: 0.2 mg Sodium Chloride (Ns) 1,000 mls @ 0 mls/hr IV ONCE ONE; Wide Open PRN Reason: Protocol Stop: 03/15/19 17:15 Last Admin: 03/15/19 17:23 Dose: 1,000 mls Lactated Ringer's (Lr) 1,000 mls @ 0 mls/hr IV ONCE ONE PRN Reason: As Directed Stop: 03/16/19 08:48 Last Admin: 03/16/19 09:04 Dose: 1,000 mls Thiamine HCl 500 mg/ Sodium (Chloride) 105 mls @ 210 mls/hr IV DAILY KASHMIR Stop: 03/20/19 08:59 Last Admin: 03/18/19 08:22 Dose: 105 mls Lorazepam (Ativan) 0.5 mg PO ONCE STA Stop: 03/16/19 13:30 Last Admin: 03/16/19 14:02 Dose: 0.5 mg Miscellaneous Information (Patch Removal) 1 ea TD DAILY21 KASHMIR Stop: 09/13/19 20:59 Last Admin: 03/17/19 22:37 Dose: Not Given Miscellaneous Medication (Icy Hot Lidocaine/Menthol 4%/1% Patch) 1 patch TD DAILY KASHMIR Stop: 09/13/19 10:59 Last Admin: 03/18/19 08:22 Dose: 1 patch Ondansetron HCl (Zofran Odt) 4 mg PO Q4HRS PRN PRN Reason: Nausea/Vomiting, Use 1st Stop: 09/11/19 19:41 Last Admin: 03/15/19 20:31 Dose: 4 mg Oxycodone HCl (Oxycodone Ir) 5 - 10 mg PO Q3HRS PRN PRN Reason: Pain, Severe Able to Take PO Stop: 03/25/19 19:41 Last Admin: 03/16/19 10:46 Dose: 5 mg Oxycodone HCl (Oxycodone Ir) 5 - 10 mg PO Q3HRS PRN PRN Reason: Pain, Severe Able to Take PO Stop: 03/26/19 19:44 Last Admin: 03/18/19 11:22 Dose: 5 mg Pantoprazole Sodium (Protonix) 40 mg IVP EDNOW ONE Stop: 03/15/19 18:11 Last Admin: 03/15/19 18:20 Dose: 40 mg Pantoprazole Sodium (Protonix) 40 mg IVP BID [facility] Stop: 09/12/19 08:59 Last Admin: 03/16/19 07:48 Dose: 40 mg Pantoprazole Sodium (Protonix) 40 mg PO BID [facility] Stop: 09/12/19 20:59 Last Admin: 03/18/19 08:22 Dose: 40 mg Sodium Chloride (Salt Tablet) 1,000 mg PO BIDMEAL [facility] Stop: 09/14/19 11:44 Last Admin: 03/18/19 12:17 Dose: 1,000 mg Tramadol HCl (Ultram) 50 mg PO Q6HRS PRN PRN Reason: Pain, Moderate Able to Take PO Stop: 09/12/19 12:26 Last Admin: 03/17/19 10:33 Dose: 50 mg Point of Care Test Results: Chemistry 03/15/19 18:03 POC Troponin I 0.02 ng/mL ng/mL (0.00-0.08) Departure - Departure Disposition: [facility] Inpatient Acute Clinical Impression: Failure to thrive in adult GI bleeding Qualifiers: GI bleed type/associated pathology: unspecified gastrointestinal hemorrhage type Qualified Code(s): K92.2 - Gastrointestinal hemorrhage, unspecified Condition: Fair
[2019-03-15 17:19] LABS: PLATELET COUNT 252 10^3/uL (150-400)
[2019-03-15] MEDS ORDERED: PANTOPRAZOLE SODIUM 40 MG VIAL IVP ONE (18:10)
[2019-03-15] MEDS ORDERED: ACETAMINOPHEN 500 MG TAB PO ONE (18:11)
--- NOTE | 2019-03-15 19:33 | CPEKG ---
Test Reason : OPEN Blood Pressure : / mmHG Vent. Rate : 090 BPM Atrial Rate : 093 BPM P-R Int : 154 ms QRS Dur : 098 ms QT Int : 472 ms P-R-T Axes : 036 -04 162 degrees QTc Int : 578 ms Sinus rhythm Low voltage, precordial leads Nonspecific T abnrm, anterolateral leads Prolonged QT interval Confirmed by Letty Reyez ([id number]) on 03/15/2019 7:32:44 PM Referred By: LETTY REYEZ Confirmed By:Letty Reyez
[2019-03-15] MEDS ORDERED: ACETAMINOPHEN 325 MG TAB PO PRN (19:42)
[2019-03-15] MEDS ORDERED: ONDANSETRON DISINTEGRATING 4 MG TAB PO PRN (19:42)
[2019-03-15] MEDS ORDERED: oxyCODONE IR 5 MG TAB PO PRN (19:42)
[2019-03-15] MEDS ORDERED: ONDANSETRON 4 MG/2 ML VIAL IVP PRN (19:42)
--- NOTE | 2019-03-15 21:10 | PDGENHP ---
<Ashley Mejia - Last Filed: 03/15/19 21:20> History and Physical - Chief Complaint Generalized weakness - History of Present Illness 74-year-old female with history of hypertension, SIADH, and chronic back pain presents with near-syncope event today and generalized weakness that has been intermittent for the last few months. She reports for the last week she has experienced decreased p.o. Intake, nausea, and dark tarry stools. Today she was ambulating and told her she felt weak and needed to be guided down to the floor which he did, no loss of consciousness or hitting her head. No prior indications before being gently guided to the floor. Denies lightheadedness, headache, chest pain, palpitations, shortness of breath, dysuria. Endorses 1 week prior having loose stools which have since resolved. She is being admitted for further workup, treatment and monitoring. History Information - Allergies/Home Medication List Allergies/Adverse Reactions: No Known Allergies Allergy (Verified 03/15/19 16:58) Home Medications: Hydrochlorothiazide [HCTZ (*)] 25 mg PO DAILY 12/14/18 [Last Taken 03/12/19] Lisinopril [Zestril 10 mg (*)] 10 mg PO DAILY 12/14/18 [Last Taken 03/12/19] I have personally reviewed and updated: family history, medical history, social history, surgical history - Past Medical History hypertension Additional medical history: SIADH - Surgical History Additional surgical history: knee tka L - Family History Positive for: non-pertinent Additional family history: Parents - Social History Smoking Status: Never smoked Alcohol Use: Occasionally (Three glasses of gin and tonic every night) Drug Use: None Additional social history: . Lives in [facility]. Review of Systems Review of Systems: ROS: 10pt was reviewed & negative except for what was stated in HPI & below Physical Exam Physical Exam: Lab data and imaging reviewed. Case discussed with admitting physician Dr. Lennox Alvarado. White blood count: 14.41 Hemoglobin hematocrit: 10.4 and 29.8 Platelet count: 252 Sodium: 129 Potassium: 3.9 chloride: 93 Carbon dioxide: 16 BUN and creatinine: 22/0.8 Troponin: 0.02 Stool Hemoccult: Positive Urinalysis: Pending Chest x-ray: Hypoinflation without acute cardiopulmonary process. Nodular densities in both lungs likely represent granulomas. EKG: Normal sinus rhythm with a rate of 90 Lumbar x-ray: 6 lumbar type vertebral body segments, stable compression fracture superior endplate of L1, L2, and L6 Temp Pulse Resp BP Pulse Ox 36.7 C 98 20 121/72 H 98 03/15/19 19:03 03/15/19 19:03 03/15/19 19:03 03/15/19 19:03 03/15/19 19:03 O2 (L/minute) 3 Constitutional: obese, uncomfortable Eyes: PERRL, anicteric sclera, EOMI Ears, Nose, Mouth, Throat: moist mucous membranes, hearing normal, ears appear normal, no oral mucosal ulcers Cardiovascular: regular rate and rhythym, no murmur, rub, or gallop, No edema Peripheral Pulses: 2+: dorsalis-pedis (R), dorsalis-pedis (L) Respiratory: no respiratory distress, no rales or rhonchi, clear to auscultation Gastrointestinal: normoactive bowel sounds, soft, non-tender abdomen, no palpable masses Genitourinary: no bladder fullness, no bladder tenderness Skin: warm, normal color, no rashes or abrasions, no fluctuance, no induration, No mottled Musculoskeletal: full muscle strength, no muscle tenderness, normal joint ROM, no joint effusions Neurologic: AAOx3, sensation intact bilaterally, CN II-XII Intact Psychiatric: interacting appropriately, not encephalopathic, thought process linear, anxious (Tearful and reports she is scared. She wants to get better to attend her grandchildren's high school graduation and wedding.) Lymph, Heme, Immunologic: no cervical LAD, no supraclavicular LAD Lab Data & Imaging Review 03/15/19 16:37 03/15/19 16:37 WBC 14.41 10^3/uL (3.80-9.50) H 03/15/19 16:37 RBC 2.94 10^6/uL (4.18-5.33) L 03/15/19 16:37 Hgb 10.4 g/dL (12.6-16.3) L 03/15/19 16:37 Hct 29.8 % (38.0-47.0) L 03/15/19 16:37 MCV 101.4 fL (81.5-99.8) H 03/15/19 16:37 MCH 35.4 pg (27.9-34.1) H 03/15/19 16:37 MCHC 34.9 g/dL (32.4-36.7) 03/15/19 16:37 RDW 16.2 % (11.5-15.2) H 03/15/19 16:37 Plt Count 252 10^3/uL (150-400) 03/15/19 16:37 MPV 10.2 fL (8.7-11.7) 03/15/19 16:37 Neut % (Auto) 86.7 % (39.3-74.2) H 03/15/19 16:37 Lymph % (Auto) 6.7 % (15.0-45.0) L 03/15/19 16:37 Addison % (Auto) 5.4 % (4.5-13.0) 03/15/19 16:37 Eos % (Auto) 0.1 % (0.6-7.6) L 03/15/19 16:37 Baso % (Auto) 0.4 % (0.3-1.7) 03/15/19 16:37 Nucleat RBC Rel Count 0.0 % (0.0-0.2) 03/15/19 16:37 Absolute Neuts (auto) 12.48 10^3/uL (1.70-6.50) H 03/15/19 16:37 Absolute Lymphs (auto) 0.97 10^3/uL (1.00-3.00) L 03/15/19 16:37 Absolute Monos (auto) 0.78 10^3/uL (0.30-0.80) 03/15/19 16:37 Absolute Eos (auto) 0.02 10^3/uL (0.03-0.40) L 03/15/19 16:37 Absolute Basos (auto) 0.06 10^3/uL (0.02-0.10) 03/15/19 16:37 Absolute Nucleated RBC 0.00 10^3/uL (0-0.01) 03/15/19 16:37 Immature Gran % 0.7 % (0.0-1.1) 03/15/19 16:37 Immature Gran # 0.10 10^3/uL (0.00-0.10) 03/15/19 16:37 Sodium 129 mEq/L (135-145) L 03/15/19 16:37 Potassium 3.9 mEq/L (3.5-5.2) 03/15/19 16:37 Chloride 93 mEq/L (97-110) L 03/15/19 16:37 Carbon Dioxide 16 mEq/l (22-31) L 03/15/19 16:37 Anion Gap 20 mEq/L (6-14) H 03/15/19 16:37 BUN 22 mg/dL (7-23) 03/15/19 16:37 Creatinine 0.8 mg/dL (0.6-1.0) 03/15/19 16:37 Estimated GFR > 60 03/15/19 16:37 Glucose 128 mg/dL (70-100) H 03/15/19 16:37 Calcium 9.3 mg/dL (8.5-10.4) 03/15/19 16:37 POC Troponin I 0.02 ng/mL (0.00-0.08) 03/15/19 18:03 Stool Occult Bld Scrn POSITIVE (NEGATIVE) H 03/15/19 17:55 Assessment & Plan Assessment: 74-year-old female presenting with intermittent generalized weakness for the last few months and more recently 1 week worth of poor p.o. Intake, nausea, and melena. Initial presentation to emergency room vital signs were the following: Blood pressure 76/48, pulse 80, respirations 16, temperature 36.8 degrees, oxygen saturation on room air 91%. Current set of vitals are the following: Blood pressure 121/72, pulse 98, respiration 20, temperature 36.7 degrees, 98% on 2 L nasal cannula. #Suspected UGIB -The pt has taken Advil 2 tabs daily since October 2018 for her chronic back pain + has 3 etoh beverages per day, no tobacco use. + stool occult, +melena -H/H has trended downward since November 2018 -GI consulted; Dr. Kessler to perform EGD in AM per ED notes therefore she will be NPO at midnight tonight -Cycle H/H x 1 at 2200, check CBC/BMP in AM -Protonix BID IVP -Counseled pt on stopping NSAID use and reducing etoh intake #Leukocytosis -Afebrile w/high white count -Suspect this is reactive and not inflammatory. Will repeat CBC/BMP in AM. Cont to monitor -UA pending #Hyponatremia, SIADH -Chronic issue -Holding HCTZ, fluid restricting 1.5L and monitoring BMP #Chronic back pain/generalized weakness -No acute changes w/imaging -Recent TSH, B12 unremarkable -PT/OT to evaluate and treat, unclear if she is currently utilizing the Chandan brace as recommended per Neurosurgery during her last admission. -Pain management PRN #Rash -Pt was recently admitted here in December 2018 for bilateral foot numbness which has since resolved however noted was a rash that was biopsied by dermatology. Pt informs me this rash has been confirmed as psoriasis Diet: Regular with 1.5 L fluid restriction, NPO at midnight tonight Code: Full VTE PPX: SCDs Disposition: Admit to observation <Neville Alvarado - Last Filed: 03/15/19 22:58> History and Physical - History of Present Illness Review of Systems Review of Systems: Physical Exam Physical Exam: Temp Pulse Resp BP Pulse Ox 36.7 C 98 20 121/72 H 98 03/15/19 19:03 03/15/19 19:03 03/15/19 19:03 03/15/19 19:03 03/15/19 19:03 O2 (L/minute) 3 Lab Data & Imaging Review 03/15/19 21:36 03/15/19 16:37 WBC 14.41 10^3/uL (3.80-9.50) H 03/15/19 16:37 RBC 2.94 10^6/uL (4.18-5.33) L 03/15/19 16:37 Hgb 9.5 g/dL (12.6-16.3) L 03/15/19 21:36 Hct 26.1 % (38.0-47.0) L 03/15/19 21:36 MCV 101.4 fL (81.5-99.8) H 03/15/19 16:37 MCH 35.4 pg (27.9-34.1) H 03/15/19 16:37 MCHC 34.9 g/dL (32.4-36.7) 03/15/19 16:37 RDW 16.2 % (11.5-15.2) H 03/15/19 16:37 Plt Count 252 10^3/uL (150-400) 03/15/19 16:37 MPV 10.2 fL (8.7-11.7) 03/15/19 16:37 Neut % (Auto) 86.7 % (39.3-74.2) H 03/15/19 16:37 Lymph % (Auto) 6.7 % (15.0-45.0) L 03/15/19 16:37 Addison % (Auto) 5.4 % (4.5-13.0) 03/15/19 16:37 Eos % (Auto) 0.1 % (0.6-7.6) L 03/15/19 16:37 Baso % (Auto) 0.4 % (0.3-1.7) 03/15/19 16:37 Nucleat RBC Rel Count 0.0 % (0.0-0.2) 03/15/19 16:37 Absolute Neuts (auto) 12.48 10^3/uL (1.70-6.50) H 03/15/19 16:37 Absolute Lymphs (auto) 0.97 10^3/uL (1.00-3.00) L 03/15/19 16:37 Absolute Monos (auto) 0.78 10^3/uL (0.30-0.80) 03/15/19 16:37 Absolute Eos (auto) 0.02 10^3/uL (0.03-0.40) L 03/15/19 16:37 Absolute Basos (auto) 0.06 10^3/uL (0.02-0.10) 03/15/19 16:37 Absolute Nucleated RBC 0.00 10^3/uL (0-0.01) 03/15/19 16:37 Immature Gran % 0.7 % (0.0-1.1) 03/15/19 16:37 Immature Gran # 0.10 10^3/uL (0.00-0.10) 03/15/19 16:37 Sodium 129 mEq/L (135-145) L 03/15/19 16:37 Potassium 3.9 mEq/L (3.5-5.2) 03/15/19 16:37 Chloride 93 mEq/L (97-110) L 03/15/19 16:37 Carbon Dioxide 16 mEq/l (22-31) L 03/15/19 16:37 Anion Gap 20 mEq/L (6-14) H 03/15/19 16:37 BUN 22 mg/dL (7-23) 03/15/19 16:37 Creatinine 0.8 mg/dL (0.6-1.0) 03/15/19 16:37 Estimated GFR > 60 03/15/19 16:37 Glucose 128 mg/dL (70-100) H 03/15/19 16:37 Calcium 9.3 mg/dL (8.5-10.4) 03/15/19 16:37 POC Troponin I 0.02 ng/mL (0.00-0.08) 03/15/19 18:03 Stool Occult Bld Scrn POSITIVE (NEGATIVE) H 03/15/19 17:55 Assessment & Plan Plan: Please see separate note for details.
[2019-03-15] MEDS ORDERED: CYCLOBENZAPRINE 10 MG TAB PO SCH (22:24)
[2019-03-15] MEDS ORDERED: CYCLOBENZAPRINE 10 MG TAB PO PRN (22:24)
[2019-03-15] MEDS: HYDROmorphONE/DILAUDID 1 MG/ML INJ IVP PRN (22:35)
--- NOTE | 2019-03-15 22:59 | HOSPPROG ---
Hospitalist Progress Note Assessment/Plan: Chart reviewed, patient personally examined, and case discussed with Kelly Mejia RESIDENTIAL CARE FACILITY MANAGER. I agree with her plan with the following exceptions: 74yo F with history of SIADH, chronic back pain, hospitalization 12/2018 for acute L1-2 compression fracture that was managed conservatively presents with presyncope and generalized weakness. She has also been having black tarry stools for about 5 days. She has had somewhat constant low back pain since December and takes several advil a day and also drinks occasional etoh. In the ED, her hematocrit was 29, down from 34 on last check. Platelets are ok. WBC is elevated at 14k. BUN is 22. A rectal exam done by ED provider was + for melena and stool occult + for blood. She has no abdominal pain on exam and her vitals show a normal BP. An L-spine XR shows stable compression fractures at L1, L2, and L6. 1. Concern for GI bleed: Suspect upper in setting of nsaid/etoh use. Hemodynamics stable. She has been started on PPI. GI consulted, planning on EGD in AM. NPO at midnight. 2. Anemia: Due to above. Will check coags. Recheck H/H in AM. Transfuse to keep hgb>7. 3. Presyncope: Likely related to blood loss. 4. Low back pain with known L-spine compression fractures: Neurosurgery previously consulted in December and recommended conservative management. She still is in quite a bit of pain. Could consider kyphoplasty once above issues resolved. 5. Hyponatremia with chronic SIADH: Near baseline. 6. Hypertension: Holding home lisinopril and hctz in setting of bleed and low Na. Dispo: observation Objective: Vital Signs Temp Pulse Resp BP Pulse Ox 36.7 C 98 20 121/72 H 98 03/15/19 19:03 03/15/19 19:03 03/15/19 19:03 03/15/19 19:03 03/15/19 19:03 Laboratory Results 03/15/19 21:36 ICD10 Worksheet Patient Problems: Problems Problem Status Onset Compression fracture of L1 lumbar vertebra Acute Compression fracture of L2 lumbar vertebra Acute Failure to thrive in adult Acute Intractable low back pain Acute Lumbar disc herniation with radiculopathy Acute Risk for falls Acute Weakness Acute
[2019-03-16] MEDS: HYDROmorphONE/DILAUDID 1 MG/ML INJ IVP PRN ×2 (01:43→05:27)
[2019-03-16 06:03] LABS: PLATELET COUNT 195 10^3/uL (150-400)
[2019-03-16 06:10] LABS: INR 1.11 (0.83-1.16); PROTIME(PATIENT) 13.9 SEC (12.0-15.0)
[2019-03-16] MEDS ORDERED: LR 1,000 ML IV ONE (08:47)
[2019-03-16] MEDS ORDERED: PANTOPRAZOLE SODIUM 40 MG VIAL IVP SCH (09:00)
[2019-03-16] MEDS ORDERED: PROPOFOL 200 MG/20 ML VIAL ONE (09:17)
--- NOTE | 2019-03-16 09:17 | PDANEPAE ---
ANE Past Medical History - Pulmonary History Hx Oxygen in Use at Home: No Hx Sleep Apnea: No Sleep Apnea Screening Result - Last Documented: Positive - Endocrine History Hx Diabetes: No - Chronic Pain History Chronic Pain: Yes (back) ANE Review of Systems Review of Systems: ANE Patient History - Allergies Allergies/Adverse Reactions: No Known Allergies Allergy (Verified 03/15/19 16:58) - Home Medications Home Medications: Hydrochlorothiazide [HCTZ (*)] 25 mg PO DAILY 12/14/18 [Last Taken 03/12/19] Lisinopril [Zestril 10 mg (*)] 10 mg PO DAILY 12/14/18 [Last Taken 03/12/19] - NPO status NPO Since - Liquids (Date): 03/16/19 NPO Since - Liquids (Time): 12:00 NPO Since - Solids (Date): 03/15/19 NPO Since - Solids (Time): 18:00 - Smoking Hx Smoking Status: Never smoked - Alcohol Use Alcohol Use: Occasionally (Three glasses of gin and tonic every night) ANE Labs/Vital Signs - Labs Result Diagrams: 03/16/19 05:13 03/16/19 05:13 - Vital Signs Blood Pressure: 120/75 Heart Rate: 110 Respiratory Rate: 18 O2 Sat (%): 94 Height: 165.1 cm Weight: 77.11 kg
--- NOTE | 2019-03-16 09:29 | PDANEPAE ---
ANE Past Medical History - Cardiovascular History Hx Hypertension: Yes - Pulmonary History Hx Oxygen in Use at Home: No Hx Sleep Apnea: No Sleep Apnea Screening Result - Last Documented: Positive - Endocrine History Hx Diabetes: No Endocrine History Comment: SIADH - Chronic Pain History Chronic Pain: Yes (back) ANE Review of Systems Review of Systems: ANE Patient History - Allergies Allergies/Adverse Reactions: No Known Allergies Allergy (Verified 03/15/19 16:58) - Home Medications Home Medications: Hydrochlorothiazide [HCTZ (*)] 25 mg PO DAILY 12/14/18 [Last Taken 03/12/19] Lisinopril [Zestril 10 mg (*)] 10 mg PO DAILY 12/14/18 [Last Taken 03/12/19] - NPO status NPO Since - Liquids (Date): 03/16/19 NPO Since - Liquids (Time): 12:00 NPO Since - Solids (Date): 03/15/19 NPO Since - Solids (Time): 18:00 - Smoking Hx Smoking Status: Never smoked - Alcohol Use Alcohol Use: Occasionally (Three glasses of gin and tonic every night) ANE Labs/Vital Signs - Labs Result Diagrams: 03/16/19 05:13 03/16/19 05:13 - Vital Signs Blood Pressure: 120/75 Heart Rate: 110 Respiratory Rate: 18 O2 Sat (%): 94 Height: 165.1 cm Weight: 77.11 kg ANE Physical Exam - Airway Neck exam: decreased ROM Mallampati Score: Class 3 - Pulmonary Pulmonary: no respiratory distress - Cardiovascular Cardiovascular: tachycardia - ASA Status ASA Status: II ANE Anesthesia Plan Anesthesia Plan: GA with mask, MAC
[2019-03-16] MEDS ORDERED: LR 500 ML IV PRN (09:42)
[2019-03-16] MEDS ORDERED: ONDANSETRON 4 MG/2 ML VIAL IVP PRN (09:42)
[2019-03-16] MEDS ORDERED: NALOXONE HCL 0.4 MG/ML INJ IVP PRN (09:42)
--- NOTE | 2019-03-16 09:59 | POSTANESTH ---
Post Anesthetic Evaluation Cardiovascular Status: Normal, Stable Respiratory Status: Normal, Stable Level of Consciousness/Mental Status: Can Participate in Eval Pain Control: Adequate, Prn Tx Ordered Nausea/Vomiting Control: Adequate, Prn Tx Ordered Complications Possibly Related to Anesthesia: None Noted
[2019-03-16] MEDS ORDERED: oxyCODONE IR 5 MG TAB ONE (10:36)
[2019-03-16] MEDS ORDERED: ACETAMINOPHEN 325 MG TAB ONE (10:36)
--- NOTE | 2019-03-16 10:46 | GCON ---
[f rep st] CONSULTATION DATE OF CONSULTATION: 03/16/2019 REFERRING PHYSICIAN: Marco Pelletier MD REASON FOR CONSULTATION: Melenic stools. CHIEF COMPLAINT: Melenic stools/fatigue. HISTORY OF PRESENT ILLNESS: The patient is a 74-year-old female on NSAIDs who presents to [facility] with complaints of generalized weakness and a near-syncope event. The patient states that she has been feeling more weak over the last several months. Over the last week, she has had several bowel movements which have been black and tarry according to her. She denies any exacerbating or alleviating factors to her symptoms. She does take ibuprofen for back pain. Today, she was ambulating and suddenly felt weak and need to be guided down to the floor. Due to this, she came to [facility] for further evaluation. She was found to have a significant drop in her hemoglobin which was normal range 3 months ago and admission was a little over 10 g/dL. She denies any chest pain, shortness of breath, cough, fever, or chills. She does have some complaints of nausea. She has not had a recent colonoscopy, but has had a Cologuard, which was unremarkable. I am being asked Dr. Alvarado to evaluate the patient in consultation regarding her melenic stools. PAST MEDICAL HISTORY: 1. Hypertension. 2. SIADH. 3. Chronic back pain. 4. Hypertension. PAST SURGICAL HISTORY: Knee surgery. SOCIAL HISTORY: No significant tobacco use. Alcohol use on a daily basis. ALLERGIES: NKDA. MEDICATIONS: Hydrochlorothiazide, lisinopril. FAMILY HISTORY: No history of colon cancer or stomach cancer. REVIEW OF SYSTEMS: A 12-point comprehensive review of systems was asked. Pertinent positives and negatives per HPI. PHYSICAL EXAMINATION: VITAL SIGNS: Blood pressure 119/83, heart rate 90, respirations 18, temperature 37.1. GENERAL: Awake, alert, oriented x3. No distress. HEENT: Anicteric sclerae. Moist mucosa. NECK: No JVD. CARDIOVASCULAR: Regular rate and rhythm. Positive S1, S2. No murmurs or gallops appreciated. LUNGS: Clear to auscultation bilaterally. No wheezes, rales or rhonchi. ABDOMEN: Soft, nontender, nondistended. Positive bowel sounds. No guarding. No rebound. EXTREMITIES: No clubbing, cyanosis or edema. NEUROLOGIC: 2 through 12 grossly intact. PSYCH: Normal affect. SKIN : No rash. MUSCULOSKELETAL: No joint effusions. LABORATORY STUDIES: Blood work: Hemoglobin 8.2, hematocrit 24.6, platelets 195. INR 1.1, glucose 114, sodium 132. ASSESSMENT AND PLAN: 1. Melenic stools-on nonsteroidal anti-inflammatory drugs. At this time, recommend to proceed with upper endoscopy to delineate the cause of her symptoms. The risks, benefits, and alternatives of the procedure were discussed in great detail with the patient. The risk of infection, bleeding, perforation, and sedation were discussed. All questions answered. Informed consent was obtained. 2. History of syndrome of inappropriate antidiuretic hormone. 3. Hypertension. 4. Chronic back pain Thank you very much for this consultation. /[id number]/MODL MTDD
--- NOTE | 2019-03-16 11:21 | GIREPORT ---
Formerly [facility], [facility] Surgical Services - Endoscopy Department Patient Name: Griselda Callejas Procedure Date: 03/16/2019 9:22 AM Patient Type: Inpatient Attending MD/ ER Physician: Florin Kessler MD Procedure: Upper GI endoscopy Indications: Melena Patient Profile: 74 year old female on NSAIDs presents for evaluation of melena/post hemorrhagic anemia. Providers: Florin Kessler MD Medicines: Monitored Anesthesia Care Complications: No immediate complications. Estimated blood loss: None. Description of Procedure: After obtaining informed consent, the endoscope was passed under direct vision. Throughout the procedure, the patient's blood pressure, pulse, and oxygen saturations were monitored continuously. The Endoscope was intro duced through the mouth, and advanced to the second part of duodenum. The [facility] er GI endoscopy was accomplished without difficulty. The patient tolerated th e procedure well. Findings: The examined esophagus was normal. A hiatal hernia was present. Patchy mildly erythematous mucosa was found in the entire examined stom ach. Biopsies were taken with a cold forceps for histology. Two superficial duodenal ulcers were found in the duodenal bulb. The la rgest lesion was 5 mm in largest dimension. Estimated Blood Loss: Estimated blood loss: none. Post Op Diagnosis: - Normal esophagus. - Hiatal hernia. - Erythematous mucosa in the stomach. Biopsied. - Multiple duodenal ulcers. Subtle and small. No stigmata of bleed note d. - Etiology? Unsure if small ulcers could be cause of symptoms. Recommen d PPI BID and no NSAIDs. Recommend colonoscopy as outpatient. Recommendation: - [facility] care. - Use a proton pump inhibitor PO BID. - No aspirin, ibuprofen, naproxen, or other non-steroidal anti-inflamma tory drugs. - Await pathology results. - Colonoscopy as outpatient - Thank you for allowing me to participate in the care of your patient. Attending Participation: I personally performed the entire procedure. Florin Kessler MD Florin Kessler MD 03/16/2019 11:20:55 AM This report has been signed electronicallyFlorin Kessler MD Number of Addenda: 0 Note Initiated On: 03/16/2019 9:22 AM [email or web address]
--- NOTE | 2019-03-16 11:49 | ASMTCMCOM ---
CM Note CM Note Notes: Chart Review for Discharge Planning: Griselda is a 74 year old female who presented to [facility] ED after a near syncopal episode. Medical history includes hypertension, SIADH, chronic back pain, L knee TKA, and generalized weakness in the past few months. The patient was admitted at [facility] 11/30-12/05 for FALL, SIADH and was discharged to [facility] and also 01/11-12/16 for back pain. GI eval placed due to melena, Upper GI endoscopy performed 03/16/19. CM discussed with RN, patient likely to discharge home independent with when clinically stable. D/C Plan: Independent. Date Signed: 03/16/2019 11:48 AM Electronically Signed By:Anupama Helton
[2019-03-16] MEDS ORDERED: LORazepam 0.5 MG TAB PO STA (13:29)
[2019-03-16] MEDS ORDERED: LORazepam 1 MG TAB PO PRN (13:30)
[2019-03-16] MEDS ORDERED: LORazepam 2 MG/ML INJ IVP PRN (13:30)
--- NOTE | 2019-03-16 15:11 | SOAPPROG ---
SARAH Progress Note Assessment/Plan: Assessment: Plan: 03/16/19 15:10 GI S/p EGD. See consult note for details. Roman Collins is taking over service at 5pm. Please call him if needed. Thank you for the consultation! Objective: Vital Signs Temp Pulse Resp BP Pulse Ox 36.6 C 101 H 20 90/64 L 92 03/16/19 14:10 03/16/19 14:10 03/16/19 14:10 03/16/19 14:10 03/16/19 14:10 Laboratory Results 03/16/19 05:13 03/16/19 05:13 03/15/19 03/16/19 03/17/19 05:59 05:59 05:59 Intake Total 300 Output Total 240 0 Balance -240 300 PT 13.9 SEC (12.0-15.0) 03/16/19 05:13 INR 1.11 (0.83-1.16) 03/16/19 05:13 ICD10 Worksheet Patient Problems: Problems Problem Status Onset Failure to thrive in adult Acute Weakness Acute Compression fracture of L1 lumbar vertebra Acute Compression fracture of L2 lumbar vertebra Acute Lumbar disc herniation with radiculopathy Acute Risk for falls Acute Intractable low back pain Acute
[2019-03-16] MEDS: traMADol 50 MG TAB PO PRN (17:11)
--- NOTE | 2019-03-16 17:16 | HOSPPROG ---
Hospitalist Progress Note Assessment/Plan: Follow-up on suspected GI bleed. Case reviewed with Dr. Kessler with Gastroenterology today. Small duodenal ulcers were noted on endoscopy but there was no actively bleeding lesions. The recommendation is to advance diet and from gastrology standpoint she can be discharged but is recommended that she schedule an outpatient colonoscopy. This recommendation reviewed with both the patient and her family member present at the bedside today. Patient states she has been taking Advil on a daily basis for back pain. We discussed that we need to avoid NSAIDs in light of the findings on her endoscopy. We discussed trying tramadol on as needed basis for pain control. Objective Vital signs as detailed below Physical exam General-conversant no acute distress, fatigued appearing, mildly tremulous Heart-regular rate and rhythm no murmurs Lungs-Clear to auscultation with normal respiratory effort Abdomen-soft nontender nondistended normal bowel sounds -no Alejandre catheter in place Extremities-no significant pitting edema or calf pain with palpation Skin-no concerning skin rashes noted Labs as detailed below Assessment and plan Suspected GI bleed-no active bleeding noted on upper endoscopy today however she did have evidence of small ulcers in the duodenum. Possibly chronic NSAID use contributing. Continue with twice a day Protonix 40 mg daily. From a gastroenterology standpoint she can be discharged when tolerating a diet. It is recommended for outpatient colonoscopy. Anemia-gradual trend downward from 10-9 to 8 today in her hemoglobin. Hemodynamically stable. Reassess again tomorrow morning she states that she feels unsteady on her feet which may be related to the anemia and I have ordered physical therapy. Low back pain-hold NSAIDs. Trial tramadol as needed. Patient had recently consulted with neuro surgery and was not felt to be an operative candidate. Hyponatremia-improved to 132. Continue to trend. Acute hypoxic respiratory failure-patient is needing 4 L oxygen immediately following her endoscopy. Anticipate she will be able to wean as she becomes more alert. Hypertension-holding antihypertensives for now. DVT prophylaxis-compression devices. Disposition-observation status initially but I have changed her to inpatient today. Full code. She was living at home prior to this hospitalization. We will need to see how she does with physical therapy to determine safe place of discharge. Objective: Vital Signs Temp Pulse Resp BP Pulse Ox 36.7 C 101 H 18 122/72 H 86 L 03/16/19 15:53 03/16/19 15:53 03/16/19 15:53 03/16/19 15:53 03/16/19 15:53 Laboratory Results 03/16/19 05:13 03/16/19 05:13 03/15/19 03/16/19 03/17/19 05:59 05:59 05:59 Intake Total 300 Output Total 240 0 Balance -240 300 PT 13.9 SEC (12.0-15.0) 03/16/19 05:13 INR 1.11 (0.83-1.16) 03/16/19 05:13 ICD10 Worksheet Patient Problems: Problems Problem Status Onset Compression fracture of L1 lumbar vertebra Acute Compression fracture of L2 lumbar vertebra Acute Failure to thrive in adult Acute Intractable low back pain Acute Lumbar disc herniation with radiculopathy Acute Risk for falls Acute Weakness Acute
[2019-03-16] MEDS: PANTOPRAZOLE SODIUM 40 MG TAB PO SCH (19:58)
[2019-03-16] MEDS: oxyCODONE IR 5 MG TAB PO PRN (19:58)
[2019-03-16] MEDS ORDERED: CYCLOBENZAPRINE 10 MG TAB PO SCH (21:00)
[2019-03-17 05:08] LABS: PLATELET COUNT 161 10^3/uL (150-400)
[2019-03-17] MEDS: THIAMINE HCL 500 MG in NS 100 ML IV SCH (09:30)
[2019-03-17] MEDS: PANTOPRAZOLE SODIUM 40 MG TAB PO SCH ×2 (09:30→21:24)
[2019-03-17] MEDS: traMADol 50 MG TAB PO PRN (10:33)
--- NOTE | 2019-03-17 10:51 | HOSPPROG ---
Hospitalist Progress Note Assessment/Plan: 74-year-old admitted with near syncope and found to be hypotensive and anemic. Evaluation included upper endoscopy which revealed multiple duodenal ulcers but no active bleeding. Suspicion is these were cause from NSAID use. # probable upper GI bleed with no active bleeding noted on upper endoscopy however multiple small ulcers noted in the duodenum. She will need further outpatient evaluation with colonoscopy * Continue twice daily Protonix * Advance diet * GI follow-up as outpatient # anemia secondary to acute GI blood loss. It has stabilized at 8.5 she does not need transfusion however will need to be monitored an additional day due to ongoing weakness. Patient discussed with physical therapy who feel she would benefit from additional therapy and is not quite safe for discharge home yet * Monitor H&H in a.m. * Continue PT * Likely home with home care in a.m. # vertebral compression fractures month ago with increased NSAID use. Her pain has been exacerbated recently with her near fall. * DC NSAIDs due to above * Continue Tramadol * Trial of Lidoderm patch * Physical therapy * Outpatient evaluation for osteoporosis # tremulousness, slightly better today but continues to be a fall risk. # alcohol use, she admits to 2-3 drinks daily but denies any history of withdrawal symptoms. Will continue to monitor closely for evidence of withdrawal # hypertension. Currently high antihypertensives are on hold will resume 1 blood pressure is stable # SAIDH. recheck sodium in the a.m. Pt inpatient status A Subjective: Patient new to me and chart reviewed. Continues to be quite weak and feels unsafe returning home. Poor appetite but would like to start eating more now. Objective: Vital Signs Temp Pulse Resp BP Pulse Ox 36.9 C 91 16 110/80 94 03/17/19 08:13 03/17/19 08:13 03/17/19 08:13 03/17/19 08:13 03/17/19 08:13 Laboratory Results 03/17/19 04:58 03/17/19 04:58 03/16/19 03/17/19 03/18/19 05:59 05:59 05:59 Intake Total 1300 Output Total 240 2 Balance -240 1298 PT 13.9 SEC (12.0-15.0) 03/16/19 05:13 INR 1.11 (0.83-1.16) 03/16/19 05:13 - Physical Exam Constitutional: chronically ill appearing, obese Eyes: PERRL Ears, Nose, Mouth, Throat: moist mucous membranes Cardiovascular: regular rate and rhythym Respiratory: no respiratory distress, clear to auscultation Gastrointestinal: normoactive bowel sounds, soft, non-tender abdomen Genitourinary: no bladder fullness Skin: normal color Musculoskeletal: generalized weakness Neurologic: AAOx3 Psychiatric: interacting appropriately ICD10 Worksheet Patient Problems: Problems Problem Status Onset Failure to thrive in adult Acute Weakness Acute Compression fracture of L1 lumbar vertebra Acute Compression fracture of L2 lumbar vertebra Acute Lumbar disc herniation with radiculopathy Acute Risk for falls Acute Intractable low back pain Acute
[2019-03-17] MEDS: LIDOCAINE 4%/MENTHOL 1% PATCH TD SCH (12:24)
[2019-03-17] MEDS: oxyCODONE IR 5 MG TAB PO PRN ×2 (13:47→21:30)
--- NOTE | 2019-03-17 17:26 | PDMN ---
Medical Necessity Medical necessity: [facility] General Admission: 74 yo w/ syncope and weakness. Eval reveal suspected UGIB, leukocytosis and hyponatremia. Initially OBS for workup/tx but post endoscopy pt developed acute hypoxic resp fx needing 4L O2, some concern for etoh w/d with tremors and etoh use hx, placed on CIWA protocol requiring additional MN for ongoing monitoring and treatment for the above. Pt is a fall risk, PT/OT ordered, not considered safe to d/c home. Pt cont to have new O2 needs and persistent tachycardia. Change to IP status 03/16/19@1612 per MD order. Hx HTN, SIADH, chronic back pain
[2019-03-17] MEDS ORDERED: PATCH REMOVAL 1 EA PATCH TD SCH (21:00)
[2019-03-18] MEDS: oxyCODONE IR 5 MG TAB PO PRN ×2 (03:03→11:22)
[2019-03-18] MEDS: PANTOPRAZOLE SODIUM 40 MG TAB PO SCH (08:22)
[2019-03-18] MEDS: LIDOCAINE 4%/MENTHOL 1% PATCH TD SCH (08:22)
[2019-03-18] MEDS: THIAMINE HCL 500 MG in NS 100 ML IV SCH (08:22)
[2019-03-18 11:18] VITALS: BP 104/64
[2019-03-18] MEDS ORDERED: SODIUM CHLORIDE 1,000 MG TAB PO SCH (11:45)
--- NOTE | 2019-03-18 11:48 | PDIAF ---
- Diagnosis Diagnosis: GI bleed, hyponatremia, htn Code Status: Full Code - Medication Management Additional Medication Instructions: discontinue HCTZ, needs BP recheck Discharge Medications: electronically signed and located in the Home Medication List. - Orders Services needed: Home Care, Registered Nurse, Physical Therapy, Occupational Therapy Home Care Face to Face: I certify that this patient was under my care and that I had the required [id number] encounter meeting the encounter requirements on the discharge day. My findings support the fact that the patient is homebound as defined in Home Care Face to Face Continued: CMS Chapter 7 Medicare Benefits Manual 30.1.1 , The condition of the patient is such that there exists a normal inability to leave home and consequently, leaving home would require a considerable and taxing effort. Isolation Type: None Diet Recommendation: no restrictions on diet Diet Texture: Regular Texture Diet Additional Instructions: Stop the hydrochlorothiazide because that can lower your sodium level Takes salt tablets for 1-4 weeks daily. I will check your sodium level in 1 week if it is improving you can likely stop the salt tablets since he will be off the hydrochlorothiazide Take iron supplements daily Continue the Protonix twice daily and follow up with Dr. Harris regarding how long to continue this. Do not take any more ibuprofen - Labs/Radiology BMP Date: 03/23/19 - Follow Up Care Current Providers and Referrals: Chelsey Harris MD [Primary Care Provider] - As per Instructions
--- NOTE | 2019-03-18 12:00 | ASMTDCNOTE ---
Case Management Discharge Discharge Order Complete? Answers: Yes Patient to Obtain Answers: via Family Medications Transportation Arranged Answers: Family/Friends Transport will Pick (Date 03/18/2019 12:00 AM & Time) Faxed Final Orders Answers: Yes Agency/Facility Transfer Answers: Yes Report Printed & Faxed to Receiving Agency Family Notified Answers: Yes Notes: in the room wit h the pt Discharge Comments Notes: Pt to discharge home with [facility] PT/OT/RN. Pt agreeable to plan. Pt's address and phone number confirmed, as well as PCP. No further CM needs noted at this time. Date Signed: 03/18/2019 11:59 AM Electronically Signed By:Toya Valderrama. JARAD
--- NOTE | 2019-03-18 12:01 | ASMTLACE ---
NOE Length of stay for Answers: 2 days current admission Acuity / Level of Answers: Yes Care: Did the patient have an inpatient admission? Comorbidities - select Answers: History of falls all that apply Opioid dependence / Chronic pain Other Notes: HTN; SIADH # of Emergency department Answers: 3-4 visits in the last 6 months Score: 16 Date Signed: 03/18/2019 12:00 PM Electronically Signed By:Toya Roth RN
--- NOTE | 2019-03-18 12:05 | ASDISCHSUM ---
Discharge Information Plan Status:Home with Home Health Medically Cleared to Leave:03/18/2019 Discharge Date:03/18/2019 CM D/C Disposition:Home Health Service ADT D/C Disposition:Home Health Service Projected Discharge Date:03/18/2019 11:00 AM Transportation at D/C:Family Discharge Delay Reason: Follow-Up Date:03/18/2019 11:00 AM Discharge Slot: Final Diagnosis:GI bleed Placement Information Referral Type:*Home Health Care Services Referral ID:[id number] Provider Name[facility] [address] 1[address] [facility] [address] Phone Number: Address 2: Fax Number: City:[place] Selection Factors: State:[place] Patient Contact Information Contact Name:MAX Relationship: Address:[address] [place] [address] Work Phone: City:[place] Alternate Phone: State/Zip Code:[place] [address] Email: Financial Information Financial Class:Medicare Primary Plan Desc:MEDICARE OUTPATIENT Primary Plan Number:[id number] Secondary Plan Desc:[facility] INSURANCE Secondary Plan Number:[id number] Assessment Information LACE LACE Length of stay for Answers: 2 days current admission Acuity / Level of Answers: Yes Care: Did the patient have an inpatient admission? Comorbidities - select Answers: History of falls all that apply Opioid dependence / Chronic pain Other Notes: HTN; SIADH # of Emergency department Answers: 3-4 visits in the last 6 months Score: 16 Date Signed: 03/18/2019 12:00 PM Electronically Signed By:Toya Valderrama. RN [facility] CM Progress Note CM Note CM Note Notes: Chart Review for Discharge Planning: Griselda is a 74 year old female who presented to [facility] ED after a near syncopal episode. Medical history includes hypertension, SIADH, chronic back pain, L knee TKA, and generalized weakness in the past few months. The patient was admitted at [facility] 11/30-12/05 for FALL, SIADH and was discharged to [facility] and also 01/11-12/16 for back pain. GI eval placed due to melena, Upper GI endoscopy performed 03/16/19. CM discussed with RN, patient likely to discharge home independent with when clinically stable. D/C Plan: Independent. Date Signed: 03/16/2019 11:48 AM Electronically Signed By:Anupama Helton Case Management Discharge Plan Note Case Management Discharge Discharge Order Complete? Answers: Yes Patient to Obtain Answers: via Family Medications Transportation Arranged Answers: Family/Friends Transport will Pick (Date 03/18/2019 12:00 AM & Time) Faxed Final Orders Answers: Yes Agency/Facility Transfer Answers: Yes Report Printed & Faxed to Receiving Agency Family Notified Answers: Yes Notes: in the room wit h the pt Discharge Comments Notes: Pt to discharge home with [facility] PT/OT/RN. Pt agreeable to plan. Pt's address and phone number confirmed, as well as PCP. No further CM needs noted at this time. Date Signed: 03/18/2019 11:59 AM Electronically Signed By:Toya Valderrama. JARAD Intervention Information Intervention Type:*IM-Signed Date of Service:03/18/2019 12:04 PM Patient Type:Inpatient Staff Member:Toya Roth RN Hours: Discipline:Assistant Statistician Severity: Comment:
--- NOTE | 2019-03-18 12:58 | GDS ---
[f rep st] DISCHARGE SUMMARY DIAGNOSES: 1. Peptic ulcer disease secondary to nonsteroidal anti-inflammatory drug use. 2. Hyponatremia, likely secondary to hydrochlorothiazide that was discontinued this admission. 3. Anemia secondary to acute gastrointestinal blood loss, stabilized at 8.5, however, she will need followup colonoscopy, as there was not any acute bleeding noted on endoscopy. 4. Vertebral compression fractures. NSAIDs have been discontinued. She can take oxycodone as neede d and discuss further pain management with her primary care provider. Lidoderm patch was added. 5. Tremulousness and abnormal gait, improved throughout her hospitalization. She will need home PT. 6. History of alcohol use without any evidence of withdrawal symptoms. 7. Hypertension, currently on lisinopril and hydrochlorothiazide. The hydrochlorothiazide was disco ntinued due to low sodium levels. I will recheck her sodium level with the visiting nurse in 1 week. 8. Syndrome of inappropriate diuretic hormone on salt tablets with a sodium of 128 at the time of di scharjitendra. PROCEDURES DONE: Upper endoscopy showing a hiatal hernia, erythematous mucosa in the stomach, multip le duodenal ulcers, subtle and small, but no stigmata of bleeding noted. Unsure if small ulcers coul d be cause of symptoms. Recommend PPI b.i.d. and no NSAIDs and colonoscopy as an outpatient. HOSPITAL COURSE: The patient is a 74-year-old who came in with a near syncopal event. On admission, she was found to be orthostatic and anemic with heme-positive stools. She was admitted to the [facility] and GI was consulted. They took her to the endoscopy lab with the findings noted above. Post pr ocedure, she was placed on a PPI and her ibuprofen was discontinued. She was slightly shaky and trem ulous post procedure and needed an extra day or 2 for improvement and at the time of discharge, she i s feeling better, but she will need home care, including physical therapy and occupational therapy. There was a question whether the bleeding or her GI blood loss anemia was due to only her upper endos copy findings, so GI has recommended a followup colonoscopy to be done as an outpatient. The other issues were slightly low sodium during her hospitalization. Her hydrochlorothiazide will b e discontinued and she will take salt tablets for 1 to 3 weeks with a followup sodium done as an outp atient. Her history of compression fractures continue to be an issue with pain. She will need physi tomas therapy at home, as well as pain control. She can follow up with her primary care provider for t his. CONDITION ON DISCHARGE: Good. DISCHARGE MEDICATIONS: Please see discharge medication form. Followup will be with her outside prov ider within a week or 2. She will also get home care. Total time spent with patient day of discharge and coordination of care is 35 minutes. /[id number]/MODL
[2019-03-19] MEDS ORDERED: THIAMINE HCL 100 MG TAB PO SCH (13:30)
== END 2019-03-18 12:41 | disposition home health service (06) | DRG 378 ==
LOC: EDUNIT# → INTOOBSV 18:19 → F3E 18:54 → OBSVTOIN 03-16 16:12
PROVIDERS: ADMIT Internal Medicine; ATTEND Internal Medicine
PROC: 0DB68ZX Excision of Stomach, Via Natural or Artificial Opening Endoscopic, Diagnostic (ICD-10-PCS; principal; 2019-03-16 09:45)
DX: K26.4 Chronic or unspecified duodenal ulcer with hemorrhage (principal); E22.2 Syndrome of inappropriate secretion of antidiuretic hormone; D62 Acute posthemorrhagic anemia; M48.56XA Collapsed vertebra, not elsewhere classified, lumbar region, initial encounter for fracture; F10.239 Alcohol dependence with withdrawal, unspecified; E86.9 Volume depletion, unspecified; T39.395A Adverse effect of other nonsteroidal anti-inflammatory drugs [NSAID], initial encounter; I10 Essential (primary) hypertension; K44.9 Diaphragmatic hernia without obstruction or gangrene; Z96.659 Presence of unspecified artificial knee joint
CPT/HCPCS: 84484-ER; 96374; 97161-GP; 97165-GO; 97535-GO; G0378; J1170; J2704; J3411

== ENCOUNTER 2019-03-20 12:53 | Inpatient (IN) | payer OTHER | END 2019-03-22 11:03 | disposition home health service (06) | LOC: F2W 15:34 ==

== ENCOUNTER → 2019-04-04 | Outpatient (CLI) | payer OTHER | LOC: FIMAGING 10:50 ==